=== PATIENT | male | born 1970 | race Caucasian/White ===

== ENCOUNTER 2016-08-10 22:41 | Emergency (ER) | payer SELFPAY ==
[2015-01-10 16:28] VITALS: BP 151/106
--- NOTE | 2016-08-10 23:06 | PHYS DOC ---
Past Medical History Past Medical History: Diabetes-Type II Past Surgical History: Other Additional Past Surgical Histo: hernia Alcohol Use: None Drug Use: None Adult General Chief Complaint Chief Complaint: BACK INJURY HPI HPI Patient is a 45 year old male who presents with mild bilateral low back pain that began yesterday when he lifted 100 pound trunk. Patient states the pain radiates to bilateral lower extremities only when he stands and occasionally. Patient denies any numbness or tingling to bilateral lower extremities or loss of bowel bladder function. Review of Systems Review of Systems Constitutional: Denies fever or chills [] GI: Denies abdominal pain, nausea, vomiting, bloody stools or diarrhea [] : Denies dysuria or hematuria [] Musculoskeletal: Bilateral low back pain radiating to bilateral lower extremities Integument: Denies rash or skin lesions [] Neurologic: Denies headache, focal weakness or sensory changes [] Endocrine: Denies polyuria or polydipsia [] Current Medications Current Medications Current Medications Medications (Trade) Dose Ordered Sig/Blanco Start Time Stop Time Status Last Admin Dose Admin Acetaminophen/ Hydrocodone Bitart (Lortab 5/325) 1 tab 1X ONCE 08/10/16 23:15 08/10/16 23:16 DC 08/10/16 23:16 1 TAB Cyclobenzaprine HCl (Flexeril) 10 mg 1X ONCE 08/10/16 23:15 08/10/16 23:16 DC 08/10/16 23:16 10 MG Naproxen (Naprosyn) 500 mg 1X ONCE 08/10/16 23:15 08/10/16 23:16 DC 08/10/16 23:16 500 MG Allergies Allergies Allergies Coded Allergies Type Severity Reaction Last Updated Verified No Known Drug Allergies 01/10/15 No Physical Exam Physical Exam Constitutional: Well developed, well nourished, no acute distress, non-toxic appearance. [] Abdomen: Bowel sounds normal, soft, no tenderness, no masses, no pulsatile masses. [] Skin: Warm, dry, no erythema, no rash. [] Back: diffuse tenderness to paraspinal muscles of bilateral low lumbar region, no midline tenderness, no CVA tenderness. [] Extremities: No tenderness, no cyanosis, no clubbing, ROM intact, no edema. [] Neurologic: Alert and oriented X 3, normal motor function, normal sensory function, no focal deficits noted. [] Psychologic: Affect normal, judgement normal, mood normal. [] Current Patient Data Vital Signs Vital Signs Date Time Temp Pulse Resp B/P Pulse Ox O2 Delivery O2 Flow Rate FiO2 08/10/16 22:50 97.6 91 18 96 Room Air 97.6 EKG EKG [] Radiology/Procedures Radiology/Procedures [] Course & Med Decision Making Course & Med Decision Making Pertinent Labs and Imaging studies reviewed. (See chart for details) Patient is in the ED with bilateral low back pain radiating to bilateral lower extremities that began yesterday after lifting a trunk. Lumbar x-rays interpreted by Dr. Valiente is negative for any acute findings. Patient probably has muscle strain of the lumbar spine. Discharged with naproxen and Flexeril. Follow-up with PCP in one week. Dragon Disclaimer Dragon Disclaimer This electronic medical record was generated, in whole or in part, using a voice recognition dictation system. Departure Departure Impression: Primary Impression: Lumbosacral strain Disposition: HOME, SELF-CARE Condition: STABLE Referrals: NO PCP (PCP) Follow-up with your own doctor in one week Patient Instructions: Lumbosacral Strain Additional Instructions: You were seen for lumbosacral strain. You can apply heat or ice to the affected area. Take the prescribed medicines as needed. Follow-up with your own doctor in one week. Come back to the emergency room if you develop any loss of bowel/ bladder function or your symptoms worsen. Scripts Cyclobenzaprine Hcl 10 Mg Tablet1 Tab PO TID #30 TAB Prov:TASHI ALEMAN APRN 08/10/16 Naproxen 500 Mg Tablet.dr1 Tab PO BID #60 TAB Ref 1 Prov:TASHI ALEMAN APRN 08/10/16 Problem Qualifiers Primary Impression: Lumbosacral strain Encounter type: initial encounter Qualified Code: S39.012A - Strain of muscle, fascia and tendon of lower back, initial encounter TASHI ALEMAN APRN Aug 10, 2016 23:06
[2016-08-10] MEDS ORDERED: NAPROXEN 500 MG TABLET PO ONE (23:15)
[2016-08-10] MEDS ORDERED: CYCLOBENZAPRINE 10 MG TABLET. PO ONE (23:15)
[2016-08-10] MEDS ORDERED: HYDROCODONE/APAP 5/325MG TABLET. PO ONE (23:15)
[2016-08-10] MEDS ORDERED: CYCL10TA2 PO (23:44)
[2016-08-10] MEDS ORDERED: NAPR500T8 PO (23:44)
--- NOTE | 2016-08-11 07:35 | RAD ---
Indication: Low back pain. Time of exam 2309 hours. Mild left convexity scoliotic curvature is noted. Lordotic curvature is normal. Vertebral body heights are well-maintained. Disc spaces are preserved. No fracture is seen. Impression: No acute bony abnormality is detected.
== END 2016-08-10 23:50 | disposition home or self-care (01) ==
LOC: ER 22:41
DX: S39.012A Strain of muscle, fascia and tendon of lower back, initial encounter (principal); E11.9 Type 2 diabetes mellitus without complications; X58.XXXA Exposure to other specified factors, initial encounter; Y93.89 Activity, other specified; Y92.89 Other specified places as the place of occurrence of the external cause; Y99.8 Other external cause status
CPT/HCPCS: 72100; 99284

== ENCOUNTER 2018-01-24 20:09 | Emergency (ER) | payer SELFPAY | END 2018-01-24 20:35 | disposition home or self-care (01) | LOC: ER 20:09 | DX: H66.91 Otitis media, unspecified, right ear (principal); J02.9 Acute pharyngitis, unspecified; E11.9 Type 2 diabetes mellitus without complications | CPT/HCPCS: 99283 ==

== ENCOUNTER 2018-10-06 19:27 | Emergency (ER) | payer SELFPAY ==
[~2018-10-06] VITALS: Ht 175.3 cm; Wt 117.9 kg
[~2018-10-06 19:27] MED LIST: AMOX500C PO; CYCL10TA2 PO; IBUP-1060 PO; NAPR500T8 PO
[2018-10-06] MEDS ORDERED: IBUPROFEN 400 MG TABLET. PO ONE (20:45)
[2018-10-06 20:52] LABS: INFLUENZA A PATIENT NEGATIVE (NEGATIVE); INFLUENZA B PATIENT NEGATIVE (NEGATIVE)
--- NOTE | 2018-10-06 20:57 | PHYS DOC ---
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 Patient's only past medical history is diabetes. Patient states he's been taking Mucinex D. ([facility]) Review of Systems Review of Systems Constitutional: Denies fever or chills [] Eyes: Denies change in visual acuity, redness, or eye pain [] HENT: nasal congestion or sore throat [] Respiratory: cough or denies shortness of breath [] Cardiovascular: No additional information not addressed in HPI [] GI: Denies abdominal pain, nausea, vomiting, bloody stools or diarrhea [] : Denies dysuria or hematuria [] Musculoskeletal: body aches. Denies back pain or joint pain [] Integument: Denies rash or skin lesions [] Neurologic: Denies headache, focal weakness or sensory changes [] All other systems were reviewed and found to be within normal limits, except as documented in this note. 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 [] HENT: Normocephalic, atraumatic, bilateral external ears normal, oropharynx moist, no oral exudates, nose normal. Throat reddened with swelling and no exudates.[] Eyes: PERRLA, EOMI, conjunctiva normal, no discharge. [] Neck: Normal range of motion, no tenderness, supple, no stridor. [] Cardiovascular:Heart rate regular rhythm, no murmur [] Lungs & Thorax: Bilateral breath sounds clear to auscultation [] Abdomen: Bowel sounds normal, soft, no tenderness, no masses, no pulsatile masses. [] Skin: Warm, dry, no erythema, no rash. [] Back: No tenderness, no CVA tenderness. [] Extremities: No tenderness, no cyanosis, no clubbing, ROM intact, no edema. [] Neurologic: Alert and oriented X 3, normal motor function, normal sensory function, no focal deficits noted. [] Psychologic: Affect normal, judgement normal, mood normal. [] (IGGY COBOS APRN) Current Patient Data Vital Signs Vital Signs Date Time Temp Pulse Resp B/P (MAP) Pulse Ox O2 Delivery O2 Flow Rate FiO2 10/06/18 22:20 98.0 100 18 153/84 (107) 97 98.0 10/06/18 19:30 Room Air (JONNY JACKSON MD) Lab Values Laboratory Tests Test 10/06/18 20:22 Influenza Type A Antigen Negative (NEGATIVE) Influenza Type B Antigen Negative (NEGATIVE) (JONNY JACKSON MD) EKG EKG [] (IGGY COBOS APRN) Radiology/Procedures Radiology/Procedures [] (IGGY COBOS APRN) Impressions: [facility] [address] [place] [address] IMAGING REPORT Signed PATIENT: RAFFY CHRISTOPHER ACCOUNT: [id number] : 1970 LOCATION: ER AGE: 47 SEX: M EXAM STATUS: REG ER ORD. PHYSICIAN: IGGY COBOS APRN REASON: cough PROCEDURE: CHEST PA & LATERAL CHEST PA LATERAL History: COUGH, FEVER Comparison: None. Findings: 2 views of the chest are submitted. There is no infiltrate, pneumothorax, or effusion. The cardiac silhouette is within normal limits in size. The trachea is in the midline. No acute osseous abnormality is identified. Impression: 1. There is no evidence of acute cardiopulmonary disease. Electronically signed by: Yehuda Osborn MD (10/06/2018 9:48 PM) [facility] DICTATED and SIGNED BY: YEHUDA OSBORN MD DATE: 10/06/182147 (IGGY COBOS APRN) Course & Med Decision Making Course & Med Decision Making Patient is a 47 year old male who presents with body aches, fever, sore throat , cough, nasal congestion, ear pain for 2 days. Patient's only past medical history is diabetes. Patient states he's been taking Mucinex D. Alert and oriented. Bilateral tympanic membranes are boggy. Throat is reddened and slightly swollen. Patient is currently afebrile. Patient has not taken any ibuprofen or Tylenol today. Temperature 98.0, 106 heart rate, 97% on room air. Skin is pink warm and dry. Mucous membranes are moist. Lungs are clear to auscultation all lobes. Patient denies any shortness of breath, chest pain, diarrhea, nausea, vomiting, fever, headache, dizziness. Chest xray shows no acute findings. Patient to follow-up area that will give him azithromycin, a Dosepak and cough medication. (IGGY COBOS APRN) Course & Med Decision Making Staff Physician Addendum: I was working in the ER during the course of this patient's visit. I was available for consultation as needed, but I was not directly involved in the care of this patient. (JONNY JACKSON MD) Dragon Disclaimer Dragon Disclaimer This electronic medical record was generated, in whole or in part, using a voice recognition dictation system. (IGGY COBOS APRN) Departure Departure Impression: Primary Impression: Cough Additional Impressions: Sore throat Body aches Disposition: HOME, SELF-CARE Condition: STABLE Referrals: NO PCP (PCP) Patient Instructions: Cough, Child, Sore Throat Additional Instructions: Follow primary care provider. Take medications as prescribed. Problem Qualifiers IGGY COBOS APRN Oct 06, 2018 20:57 JONNY JACKSON MD Oct 15, 2018 17:02
--- NOTE | 2018-10-06 21:51 | RAD ---
CHEST PA LATERAL History: COUGH, FEVER Comparison: None. Findings: 2 views of the chest are submitted. There is no infiltrate, pneumothorax, or effusion. The cardiac silhouette is within normal limits in size. The trachea is in the midline. No acute osseous abnormality is identified. Impression: 1. There is no evidence of acute cardiopulmonary disease. Electronically signed by: Edward Holden MD (10/06/2018 9:48 PM) [facility]
[2018-10-06] MEDS ORDERED: METH4TAB2 PO (22:00)
[2018-10-06] MEDS ORDERED: BENZ100C PO (22:00)
[2018-10-06] MEDS ORDERED: AZIT250T6 PO (22:00)
[2018-10-06 22:20] VITALS: BP 153/84
== END 2018-10-06 22:20 | disposition home or self-care (01) ==
LOC: ER 19:27
DX: J02.9 Acute pharyngitis, unspecified (principal); R50.9 Fever, unspecified; H92.09 Otalgia, unspecified ear; M79.18 Myalgia, other site; E11.9 Type 2 diabetes mellitus without complications
CPT/HCPCS: 71046; 87804; 99284-25

== ENCOUNTER 2018-10-09 16:29 | Inpatient (IN) | payer SELFPAY ==
[~2018-10-09] VITALS: Ht 175.3 cm; Wt 113.4 kg
[~2018-10-09 16:29] MED LIST changes: +AZIT250T6 PO; +BENZ100C PO; +METH4TAB2 PO
[2018-10-09] MEDS ORDERED: fentaNYL PF VIAL 100 MCG/2 ML VIAL IV ONE (17:15)
[2018-10-09 17:41] LABS: BASO % 0 % (0-3); EOS # 0.1 x10^3/uL (0.0-0.7); EOS % 1 % (0-3); HEMATOCRIT 46.7 % (39.0-53.0); HEMOGLOBIN 15.7 g/dL (13.0-17.5); LYMPH % 9 % (24-48); MEAN CORPUSCULAR HEMOGLOBIN 31 pg (25-35); MEAN CORPUSCULAR HGB CONC 34 g/dL (31-37); MEAN CORPUSCULAR VOLUME 91 fL (79-100); MONO # 0.7 x10^3/uL (0.0-1.1); MONO % 7 % (0-9); NEUT # 8.9 x10^3uL (1.8-7.7); NEUT % 83 % (31-73); PLATELET COUNT 294 x10^3/uL (140-400); RED BLOOD COUNT 5.12 x10^6/uL (4.30-5.70); RED CELL DISTRIBUTION WIDTH 13.2 % (11.5-14.5); WHITE BLOOD COUNT 10.7 x10^3/uL (4.0-11.0)
[2018-10-09 17:52] LABS: CALCIUM 9.2 mg/dL (8.5-10.1); CREATININE 1.3 mg/dL (0.7-1.3); GFR 59.2; POTASSIUM 4.2 mmol/L (3.5-5.1)
[2018-10-09 17:55] LABS: ALBUMIN 3.4 g/dL (3.4-5.0); ALBUMIN/GLOBULIN RATIO 0.7 (1.0-1.7); TOTAL BILIRUBIN 0.4 mg/dL (0.2-1.0); TOTAL PROTEIN 8.1 g/dL (6.4-8.2)
[2018-10-09] MEDS ORDERED: METOPROLOL TARTRATE 5 MG/5 ML VIAL. IVP ONE (18:00)
[2018-10-09] MEDS ORDERED: CONTRAST GIVEN. MC PRN (18:15)
[2018-10-09] MEDS ORDERED: IOHEXOL 300 MG/ML 100ML VIAL. IV ONE (18:30)
--- NOTE | 2018-10-09 18:40 | RAD ---
EXAM: CT Pelvis with IV contrast CLINICAL HISTORY: RASH ON SCROTUM AND LEGS X 5 DAYS COMPARISON: none TECHNIQUE: Helical CT of the pelvis was performed following the administration of intravenous contrast. Axial, coronal and sagittal reformatted images were generated. PQRS compliance statement - One or more of the following individualized dose reduction techniques were utilized for this study: 1. Automated exposure control 2. Adjustment of the mA and/or kV according to patient size 3. Use of iterative reconstruction technique FINDINGS: Pelvis: Scrotal soft tissue thickening is seen at the inferior margin. No definite soft tissue gas is seen in this region. No associated loculated fluid collection is seen. Prominent right inguinal lymph nodes are seen. For example a 1.6 x 1.5 cm right inguinal lymph node is seen with associated fat infiltration. No pelvic ascites. Changes of right inguinal hernia repair are seen. Appendix is normal. Bones: No aggressive osseous lesion is seen. No evidence for fracture or AVN. Bilateral hip joint degenerative changes are seen. IMPRESSION: Scrotal soft tissue thickening particularly posteriorly extending toward the thighs may be seen with soft tissue infection. No definite subcutaneous gas or loculated fluid collection is definitively identified. Electronically signed by: Saul Morton MD (10/09/2018 6:37 PM) [facility]
[2018-10-09] MEDS ORDERED: IV NORMAL SALINE 1000ML BAG 1,000 ML IV ONE ×2 (19:00→19:15)
[2018-10-09] MEDS: NYSTATIN TOPICAL POWDER 15GM BOTTLE. TP SCH (19:09)
[2018-10-09] MEDS: NYSTATIN 100,000 UNIT/GM TOPICAL CREAM 15GM TUBE. TP SCH (19:09)
[2018-10-09] MEDS ORDERED: INSULIN REGULAR 100 UNIT/ML 3ML VIAL. IV ONE (19:15)
[2018-10-09] MEDS ORDERED: DEXTROSE 50% 25 GM / 50ML DISP.SYRIN. IV PRN (19:30)
[2018-10-09] MEDS ORDERED: cefTRIAXone IV Push 1 GM VIAL. IVP ONE (19:30)
[2018-10-09] MEDS ORDERED: VANCOMYCIN 2 GM in IV NORMAL SALINE 500ML BAG 500 ML IV ONE (19:30)
[2018-10-09] MEDS ORDERED: ONDANSETRON PF 4 MG/2 ML VIAL. IV PRN (19:30)
[2018-10-09] MEDS ORDERED: fentaNYL PF VIAL 100 MCG/2 ML VIAL IV PRN (19:30)
--- NOTE | 2018-10-09 20:08 | PHYS DOC ---
Past Medical History Past Medical History: Diabetes-Type II, Other Additional Past Medical Histor: SEASONAL ALLERGIES (MANDY SABA APRN) Past Surgical History: Other Additional Past Surgical Histo: hernia (MANDY SABA APRN) Alcohol Use: None Drug Use: None (MANDY SABA APRN) Adult General Chief Complaint Chief Complaint: SKIN RASH/ABSCESS HPI HPI Patient is a 47 year old male who presents with a rash to his scrotum and bilateral thighs and an erythematous third toe to the right foot. The patient states that the rash has been greatly worsening over the past few days and he is now suffering quite a bit of pain. He states that the skin is weeping. He denies pain in his testicles but states that the skin of the scrotum is painful. He denies fevers but thinks that he does have the flu. He has had chills and body aches. (MANDY SABA APRN) Review of Systems Review of Systems Constitutional: See history of present illness Eyes: Denies change in visual acuity, redness, or eye pain [] HENT: Denies nasal congestion or sore throat [] Respiratory: Denies cough or shortness of breath [] Cardiovascular: No additional information not addressed in HPI [] GI: Denies abdominal pain, nausea, vomiting, bloody stools or diarrhea [] : Denies dysuria or hematuria [] Musculoskeletal: See history of present illness Integument: See history of present illness Neurologic: Denies headache, focal weakness or sensory changes [] Endocrine: Denies polyuria or polydipsia [] All other systems were reviewed and found to be within normal limits, except as documented in this note. (MANDY SABA APRN) Current Medications Current Medications Current Medications Medications (Trade) Dose Ordered Sig/Blanco Start Time Stop Time Status Last Admin Dose Admin Fentanyl Citrate (Fentanyl 2ml Vial) 50 mcg 1X ONCE 10/09/18 17:15 10/09/18 17:16 DC 10/09/18 18:14 50 MCG Info (CONTRAST GIVEN -- Rx MONITORING) 1 each PRN DAILY PRN 10/09/18 18:15 10/11/18 18:14 DC Insulin Human Regular (HumuLIN R VIAL) 10 unit 1X ONCE 10/09/18 19:15 10/09/18 19:16 DC 10/09/18 19:14 10 UNIT Iohexol (Omnipaque 300 Mg/ml) 75 ml 1X ONCE 10/09/18 18:30 10/09/18 18:31 DC 10/09/18 18:04 75 ML Metoprolol Tartrate (Lopressor Vial) 5 mg 1X ONCE 10/09/18 18:00 10/09/18 18:01 DC Sodium Chloride 1,000 ml @ 1,000 mls/hr 1X ONCE 10/09/18 19:15 10/09/18 20:14 DC 10/09/18 20:24 1,000 MLS/HR (MINDY PINEDA DO) Physical Exam Physical Exam Constitutional: Well developed, well nourished, no acute distress, non-toxic appearance. [] HENT: Normocephalic, atraumatic, bilateral external ears normal, oropharynx moist, no oral exudates, nose normal. [] Eyes: PERRLA, EOMI, conjunctiva normal, no discharge. [] Neck: Normal range of motion, no tenderness, supple, no stridor. [] Cardiovascular:Heart rate regular rhythm, no murmur [] Lungs & Thorax: Bilateral breath sounds clear to auscultation [] Abdomen: Bowel sounds normal, soft, no tenderness, no masses, no pulsatile masses. [] Skin: There is excoriation and erythema to the scrotum and bilateral inner thighs with secondary skin infection noted, no necrosis noted, the skin appears macerated in the folds Back: No tenderness, no CVA tenderness. [] Extremities: Right third toe is erythematous and edematous Neurologic: Alert and oriented X 3, normal motor function, normal sensory function, no focal deficits noted. [] Psychologic: Affect normal, judgement normal, mood normal. [] (MANDY SABA APRN) Current Patient Data Vital Signs Vital Signs Date Time Temp Pulse Resp B/P (MAP) Pulse Ox O2 Delivery O2 Flow Rate FiO2 10/09/18 19:07 132/81 (98) 10/09/18 18:37 95 Room Air 10/09/18 18:20 98 10/09/18 18:14 20 10/09/18 17:03 97.5 97.5 (MINDY PINEDA DO) Lab Values Laboratory Tests Test 10/09/18 17:30 White Blood Count 10.7 x10^3/uL (4.0-11.0) Red Blood Count 5.12 x10^6/uL (4.30-5.70) Hemoglobin 15.7 g/dL (13.0-17.5) Hematocrit 46.7 % (39.0-53.0) Mean Corpuscular Volume 91 fL (79-100) Mean Corpuscular Hemoglobin 31 pg (25-35) Mean Corpuscular Hemoglobin Concent 34 g/dL (31-37) Red Cell Distribution Width 13.2 % (11.5-14.5) Platelet Count 294 x10^3/uL (140-400) Neutrophils (%) (Auto) 83 % (31-73) H Lymphocytes (%) (Auto) 9 % (24-48) L Monocytes (%) (Auto) 7 % (0-9) Eosinophils (%) (Auto) 1 % (0-3) Basophils (%) (Auto) 0 % (0-3) Neutrophils # (Auto) 8.9 x10^3uL (1.8-7.7) H Lymphocytes # (Auto) 1.0 x10^3/uL (1.0-4.8) Monocytes # (Auto) 0.7 x10^3/uL (0.0-1.1) Eosinophils # (Auto) 0.1 x10^3/uL (0.0-0.7) Basophils # (Auto) 0.0 x10^3/uL (0.0-0.2) Sodium Level 133 mmol/L (136-145) L Potassium Level 4.2 mmol/L (3.5-5.1) Chloride Level 95 mmol/L (98-107) L Carbon Dioxide Level 27 mmol/L (21-32) Anion Gap 11 (6-14) Blood Urea Nitrogen 16 mg/dL (8-26) Creatinine 1.3 mg/dL (0.7-1.3) Estimated GFR (Cockcroft-Gault) 59.2 BUN/Creatinine Ratio 12 (6-20) Glucose Level 401 mg/dL (70-99) H Lactic Acid Level 4.0 mmol/L (0.4-2.0) *H Calcium Level 9.2 mg/dL (8.5-10.1) Total Bilirubin 0.4 mg/dL (0.2-1.0) Aspartate Amino Transferase (AST) 18 U/L (15-37) Alanine Aminotransferase (ALT) 42 U/L (16-63) Alkaline Phosphatase 112 U/L (46-116) Total Protein 8.1 g/dL (6.4-8.2) Albumin 3.4 g/dL (3.4-5.0) Albumin/Globulin Ratio 0.7 (1.0-1.7) L Laboratory Tests 10/09/18 17:30 Laboratory Tests 10/09/18 17:30 Microbiology 10/09/18 Anaerobic/Aerobic Culture, Resulted Pending 10/09/18 Anaerobic Culture Result 1 (LUANNE), Resulted Pending 10/09/18 Aerobic Culture - Preliminary, Resulted 10/09/18 Aerobic Culture Result 1 (LUANNE) - Preliminary, Resulted 10/09/18 Aerobic Culture Result 2 (LUANNE) - Preliminary, Resulted 10/09/18 Gram Stain - Final, Resulted 10/09/18 Gram Stain Result 1 (LUANNE) - Final, Resulted 10/09/18 Gram Stain Result 2 (LUANNE) - Final, Resulted (MINDY PINEDA DO) EKG EKG [] (MANDY SABA APRN) Radiology/Procedures Radiology/Procedures [] (MANDY SABA APRN) Radiology/Procedures PROCEDURE: CT PELVIS W/CONTRAST EXAM: CT Pelvis with IV contrast CLINICAL HISTORY: RASH ON SCROTUM AND LEGS X 5 DAYS COMPARISON: none TECHNIQUE: Helical CT of the pelvis was performed following the administration of intravenous contrast. Axial, coronal and sagittal reformatted images were generated. PQRS compliance statement - One or more of the following individualized dose reduction techniques were utilized for this study: 1. Automated exposure control 2. Adjustment of the mA and/or kV according to patient size 3. Use of iterative reconstruction technique FINDINGS: Pelvis: Scrotal soft tissue thickening is seen at the inferior margin. No definite soft tissue gas is seen in this region. No associated loculated fluid collection is seen. Prominent right inguinal lymph nodes are seen. For example a 1.6 x 1.5 cm right inguinal lymph node is seen with associated fat infiltration. No pelvic ascites. Changes of right inguinal hernia repair are seen. Appendix is normal. Bones: No aggressive osseous lesion is seen. No evidence for fracture or AVN. Bilateral hip joint degenerative changes are seen. IMPRESSION: Scrotal soft tissue thickening particularly posteriorly extending toward the thighs may be seen with soft tissue infection. No definite subcutaneous gas or loculated fluid collection is definitively identified. Electronically signed by: Saul Morton MD (10/09/2018 6:37 PM) [facility] (MINDY PINEDA DO) Course & Med Decision Making Course & Med Decision Making Pertinent Labs and Imaging studies reviewed. (See chart for details) The patient has an elevated glucose and lactic acid. He was given 2 L of normal saline, 10 units of regular insulin, fentanyl, Rocephin and vancomycin in the emergency department. He will be admitted to Dr. Oakes's service. Nystatin cream and powder were applied to the affected areas. (MANDY SABA APRN) Dragon Disclaimer Dragon Disclaimer This electronic medical record was generated, in whole or in part, using a voice recognition dictation system. (MANDY SABA APRN) Departure Departure Impression: Primary Impression: Diabetes Additional Impressions: Skin infection Toe infection Disposition: ADMITTED INPATIENT Admitting Physician: Abiel Fuentes (MANDY SABA APRN) Condition: GOOD Referrals: NO PCP (PCP) Scripts Lisinopril (LISINOPRIL) 2.5 Mg Tablet 1 TAB PO DAILY for hypertension and diabetes, #30 TAB 1 Refill Prov: LANIE THOMAS MD 10/12/18 Metformin Hcl (METFORMIN HCL) 500 Mg Tablet 500 MG PO BIDWMEALS for ANTI-DIABETIC, #60 TAB 0 Refills Prov: LANIE THOMAS MD 10/12/18 Fluconazole (FLUCONAZOLE) 200 Mg Tablet 1 TAB PO DAILY for skin rash, #7 TAB Prov: LANIE THOMAS MD 10/12/18 Doxycycline Monohydrate (DOXYCYCLINE MONOHYDRATE) 100 Mg Capsule 1 CAP PO BID for cellulitis, #14 CAP Prov: LANIE THOMAS MD 10/12/18 Amoxicillin/Potassium Clav (AUGMENTIN 875-125 TABLET) 1 Each Tablet 1 TAB PO BID for cellulitis, #14 TAB Prov: LANIE THOMAS MD 10/12/18 Lactobacillus Rhamnosus Gg (CULTURELLE) 1 Each Cap.sprink 1 CAP PO BID for gut health while on antibiotic, #60 CAP Prov: LANIE THOMAS MD 10/12/18 Nystatin (NYSTOP) 60 Gm Powder 1 QUINTON TP BID for rash, #30 MISC Prov: LANIE THOMAS MD 10/12/18 Attending Signature Attending Signature I have reviewed the PA/ANIMAL HUSBANDRY MANAGER's note and plan of care. I was available for consultation as needed during the patient's visit in the emergency department. I agree with the clinical impression, plan, and disposition. (MINDY PINEDA DO) Problem Qualifiers MANDY SABA APRN Oct 09, 2018 20:08 MINDY PINEDA DO Oct 13, 2018 04:35
[2018-10-09] MEDS: VANCOMYCIN PER PHARMACY MC PRN ×2 (20:35→21:18)
[2018-10-09 20:50] VITALS: BP 146/93
--- NOTE | 2018-10-09 20:55 | NUR ---
The patient, RAFFY CHRISTOPHER, 47 y/o, M admitted by LILIANA RODRIGUEZ MD, from the ED was given written information regarding hospital policies, unit procedures and contact persons. Valuables were checked and kept w/ pt. Pt vital signs are stable, afebrile, and is ambulating well. Pt c/o pain around the groin area. Rash is seen all over the groin area and down right thigh. Pt has a wound on the right middle toe. Photographs were taken and placed in chart. Pt was accompanied by his girlfriend on admission. Will continue to monitor.
--- NOTE | 2018-10-09 21:24 | NUR ---
Pharmacy Vancomycin Dosing Note S:Consulted to monitor and dose vancomycin started 10/09/18. O:RAFFY CHRISTOPHER is a 47 year old M with Abscess Cellulitis . Height: 5 feet, 9 inches Weight: 113.138479 kg [place] Body Weight: 70.70 Adjusted Body Weight: 87.78 Dosing Weight: Actual Other Antibiotics: LABS: Last BUN: 16 Last Creatinine: 1.3 Creatinine Clearance: 87.2 mL/min Last WBC: 10.7 Last Procalcitonin: Tmax (past 24 hours): 97.5 Microbiology: I/O: Drug Levels: Last level: on at Last dose given 10/09/18 at 1942 Vancomycin Dosing: Loading Dose: 2000 mg x1 Dosing Weight: Actual Target Trough: 10-20 A: Based on weight and est. CrCl: P: 1. Vancomycin 2000mg, followed by Vancomycin 1750 mg IV q12h. 2. Follow up Trough level on 10/11/18 at 0730. 3. Pharmacy will continue to monitor, follow and adjust therapy as needed. Deion Garrison [facility], 10/09/18 0308
[2018-10-09] MEDS: IV NORMAL SALINE 1000ML BAG 1,000 ML IV SCH (22:35)
[2018-10-09] MEDS: MORPHINE SULFATE 4 MG/ML VIAL. IV PRN (22:36)
[2018-10-09 23:00] VITALS: BP 139/89
[2018-10-09 23:37] LABS: BILIRUBIN,URINE NEGATIVE (NEG); CLARITY,URINE CLEAR; COLOR,URINE YELLOW; NITRITE,URINE NEGATIVE (NEG); PROTEIN,URINE NEGATIVE (NEG-TRACE); UROBILINOGEN,URINE 0.2 mg/dL (0.2 mg/dL)
[2018-10-09 23:49] LABS: RBC,URINE OCC /HPF (0-2)
[2018-10-09 23:50] LABS: BACTERIA,URINE 0 /HPF (0-FEW); SQUAMOUS EPITHELIAL CELL,UR FEW /LPF
[2018-10-10 03:00] VITALS: BP 125/88
[2018-10-10 05:04] LABS: BASO % 0 % (0-3); EOS # 0.2 x10^3/uL (0.0-0.7); EOS % 2 % (0-3); HEMATOCRIT 42.5 % (39.0-53.0); HEMOGLOBIN 14.2 g/dL (13.0-17.5); LYMPH # 1.6 x10^3/uL (1.0-4.8); LYMPH % 21 % (24-48); MEAN CORPUSCULAR HEMOGLOBIN 30 pg (25-35); MEAN CORPUSCULAR HGB CONC 33 g/dL (31-37); MEAN CORPUSCULAR VOLUME 91 fL (79-100); MONO # 0.7 x10^3/uL (0.0-1.1); MONO % 9 % (0-9); NEUT # 5.3 x10^3uL (1.8-7.7); NEUT % 68 % (31-73); PLATELET COUNT 283 x10^3/uL (140-400); RED BLOOD COUNT 4.67 x10^6/uL (4.30-5.70); WHITE BLOOD COUNT 7.9 x10^3/uL (4.0-11.0)
[2018-10-10 05:24] LABS: CALCIUM 8.7 mg/dL (8.5-10.1); GFR 80.1
[2018-10-10 07:00] VITALS: BP 166/91
[2018-10-10] MEDS: INSULIN LISPRO 300 UNITS/3 ML INSULN.PEN. SQ SCH ×3 (08:00→17:27)
[2018-10-10] MEDS: IV NORMAL SALINE 1000ML BAG 1,000 ML IV SCH ×2 (08:50→15:12)
[2018-10-10] MEDS: NYSTATIN 100,000 UNIT/GM TOPICAL CREAM 15GM TUBE. TP SCH ×2 (08:51→21:44)
[2018-10-10] MEDS: NYSTATIN TOPICAL POWDER 15GM BOTTLE. TP SCH ×2 (08:51→21:44)
[2018-10-10] MEDS: MORPHINE SULFATE 4 MG/ML VIAL. IV PRN (08:52)
[2018-10-10] MEDS: VANCOMYCIN 1.75 GM in IV NORMAL SALINE 500ML BAG 500 ML IV SCH ×2 (08:56→19:39)
[2018-10-10 11:00] VITALS: BP 122/75
--- NOTE | 2018-10-10 13:06 | NUR ---
SW following. Discussed with RN, pt is from home with . SW met with pt to give self pay resource packet, pt denied any further SW needs. SW will continue to follow.
--- NOTE | 2018-10-10 14:08 | HP ---
ADMIT DATE: 10/09/2018 CHIEF COMPLAINT: Skin rash in the groin and scrotum and right third toe. HISTORY OF PRESENT ILLNESS: The patient is a pleasant 47-year-old male who has diabetes. He presents with the above infections in his right groin, scrotum and right foot. It has been occurring for several weeks. He has tried taking [id number] meds, but that is not working. He describes it as agonizing, rated at 10/10, with associated pain. I discussed the case with ER physician. We are going to admit the patient and consult Infectious Disease and start him on some IV vancomycin. PAST MEDICAL HISTORY: Diabetes, probable noncompliance, previous skin rash. ALLERGIES: None. FAMILY HISTORY: Diabetes. SOCIAL HISTORY: Does not drink, smoke or take drugs. MEDICATIONS: Reviewed, please refer to the MRAD. REVIEW OF SYSTEMS: GENERAL: No history of weight change, weakness or fevers. SKIN: He complains of rash on his right inner thigh. EYES: No blurred, double or loss of vision. NOSE AND THROAT: No history of nosebleeds, hoarseness or sore throat. HEART: No history of palpitations, chest pain or shortness of breath on exertion. LUNGS: Denies cough, hemoptysis, wheezing or shortness of breath. GASTROINTESTINAL: Denies changes in appetite, nausea, vomiting, diarrhea or constipation. GENITOURINARY: He complains of a rash on his scrotum.. NEUROLOGIC: Denies history of numbness, tingling, tremor or weakness. PSYCHIATRIC: No history of panic, anxiety or depression. ENDOCRINE: No history of heat or cold intolerance, polyuria or polydipsia. EXTREMITIES: He complains of rash on the right third toe.. PHYSICAL EXAMINATION: VITAL SIGNS: Temperature afebrile, pulse 82, respirations 18, blood pressure 122/90. GENERAL: He is alert, cooperative. HEART: Normal S1, S2. LUNGS: Clear. ABDOMEN: Soft. EXTREMITIES: The right third toe does have a dry and erythematous lesion. Pedal pulses are distant. GENITOURINARY: He has got a scrotal rash and a right inner thigh rash. ENDOCRINE: No thyromegaly. LYMPHATICS: No cervical nodes. HEMATOPOIETIC: No bruising. PSYCHIATRIC: He is stable. LABORATORY DATA: Hematology is normal. Electrolytes are normal other than a glucose of 214 and lactic acid of 4. Urinalysis negative. ASSESSMENT AND PLAN: Cellulitis and probable early sepsis with lactic acidosis and tachycardia when he first got to the Emergency Room of 114 and tachypnea as well when he got to the Emergency Room with a rate of 20. Start IV vancomycin. Consult Infectious Disease. Wound care nurse to evaluate and treat. Home meds. Deep venous thrombosis prophylaxis, frequent labs. MOHSEN SOTO DO DR: ZOEY/kel JOB#: [id number] / [id number]
[2018-10-10 15:00] VITALS: BP 131/74
[2018-10-10] MEDS: MICAFUNGIN 100 MG in IV DEXTROSE 5% 100ML 100 ML IV SCH (15:12)
--- NOTE | 2018-10-10 15:16 | RAD ---
EXAM: Right foot, 3 views. HISTORY: Third toe swelling and erythema. COMPARISON: None. FINDINGS: 3 views of the right foot are obtained. There is no fracture, dislocation or subluxation. There is a small bone island within the cuboid. There is a small plantar spur and minimal enthesopathy at the Achilles tendon insertion. IMPRESSION: No acute osseous finding. Electronically signed by: Jessica Bailon MD (10/10/2018 3:13 PM) [facility]
[2018-10-10] MEDS: VANCOMYCIN PER PHARMACY MC PRN (16:58)
[2018-10-10] MEDS: PIPERACILLIN/TAZOBACTAM 3.375 GM in IV NORMAL SALINE 50ML 50 ML IV SCH (17:20)
--- NOTE | 2018-10-10 17:57 | NUR ---
Wound Care Pt seen for wound care consultation for R groin and R 3rd toe wounds. R 3rd toe is bright red, dry and crusty, no drainage or open skin noted, appears to possibly be fungal. Groin and lamine areas macerated, yeasty and rashy, areas cleaned, Nystatin powder reapplied, would recommend powder only, as cream is keeping area wet. Pt educated on proper cleaning and drying of skin. No other wounds noted on full skin inspection.
[2018-10-10 19:00] VITALS: BP 124/62
[2018-10-10] MEDS: LACTOBACILLUS RHAMNOSUS GG 1 CAPSULE. PO SCH (21:43)
[2018-10-10 23:00] VITALS: BP 123/79
[2018-10-11] MEDS: PIPERACILLIN/TAZOBACTAM 3.375 GM in IV NORMAL SALINE 50ML 50 ML IV SCH ×4 (00:17→17:31)
[2018-10-11 03:00] VITALS: BP 112/61
--- NOTE | 2018-10-11 04:48 | CONS ---
DATE OF CONSULTATION: 10/10/2018 REFERRING PHYSICIAN: Dr. Cazares. REASON FOR CONSULTATION: Scrotal cellulitis. HISTORY OF PRESENT ILLNESS: A 47-year-old male, with diabetes, poorly controlled, presented to the ER on 10/09/2018 with complaints of chills, body ache, rash over the scrotum and bilateral thigh with erythematous right third toe, which started a couple of days prior to presentation. He started having pain and the skin lesion started weeping. He started having pain over the skin on the scrotum. He thought he may have flu, but denies any fever. He was found to have high blood sugar. No leukocytosis. He had lactic acidosis. He was given a dose of ceftriaxone and subsequently was started on IV vancomycin and admitted to the floor. ID consult has been requested for antibiotic management. He underwent a pelvic CT, which showed scrotal soft tissue thickening, particularly posteriorly extending towards the thigh, may be seen with soft tissue infection, no definite subcutaneous gas or loculated fluid collection is definitely identified. Chest x-ray showed no acute cardiopulmonary disease. White count was normal. Lactate was high at 4, last night was 2.2. Influenza screen was negative. UA was negative. REVIEW OF SYSTEMS: The patient denies any fevers. Feels better today. Denies any chills. Denies any night sweats. Denies any pain in the right toe. Does have some pain over the scrotum and the thigh. Denies any symptoms, GI symptoms, headache, runny nose, sore throat, rash besides above in HPI or chest pain. PAST MEDICAL HISTORY: Diabetes, poorly controlled; history of skin infection 4 years ago, unable to give details; history of lumbosacral strain. CURRENT MEDICATIONS: IV vancomycin. OTHER MEDICATIONS: Reviewed in medication list. ALLERGIES: No known drug allergies. FAMILY HISTORY: As per HPI. PHYSICAL EXAMINATION: VITAL SIGNS: Temperature 97.7, pulse 86, respiratory rate 18, blood pressure 122/75, oxygen saturation 96% on room air. GENERAL: Alert, oriented x 3, sleepy male, arousable, in no acute distress, cooperative. HEENT: Normocephalic, atraumatic, anicteric. NECK: Supple. No JVD. LUNGS: Clear bilaterally. No wheezing. HEART: S1, S2. No gallops, murmurs or rubs. ABDOMEN: Soft, nontender, nondistended. No rebound, no guarding. EXTREMITIES: Right third toe shows dry erythematous lesion, mild skin breakdown, no purulence. GENITOURINARY: Has scrotal erythema, rash going up to the right inner thigh. No fluctuance, nontender. No induration. LYMPHATICS: No inguinal lymphadenopathy. CENTRAL NERVOUS SYSTEM: Alert and oriented x 3. Grossly nonfocal. PSYCHIATRIC: Cooperative, appropriate mood and affect. DERMATOLOGIC: No generalized rashes except for above. LABORATORY DATA: WBC 7.9, hemoglobin 14.2, hematocrit 42.5, platelets 283, neutrophil was 83%, today is 68. Sodium 139, potassium 4.0, chloride 101, bicarb 29, BUN 11, creatinine 1.1, glucose 214, was 401. Lactate was 4, repeat was 2.2. LFTs within normal limits. Influenza screen negative. UA negative for leukocyte esterase, 1-4 wbc's. IMAGING: Pelvic CT shows scrotal soft tissue thickening, particularly posterior extending towards the thigh, may be seen with soft tissue infection, no definite subcutaneous gas or loculated fluid collection is definitely identified. IMPRESSION: 1. Early sepsis.Source Scrotal infection 2. Lactic acidosis. 3. Cellulitis of scrotum and right upper thigh.CT Pelvis no abscess 4. Poorly controlled diabetes. RECOMMENDATIONS: 1. Continue empiric IV vancomycin.Monitor renal functions closely 2. Start the patient on Zosyn and micafungin. 3. Follow up cultures and susceptibility results. 4. Continue local wound care. 5. We will obtain right foot x-ray. 6. Monitor renal functions closely. 7. We will modify treatment depending on clinical response. Thank you, Dr. Cazares, for consulting Infectious Disease to participate in this patient's care. If you have any questions, do not hesitate to contact me. MILAGROS PONCE MD DR: JUN/kel JOB#: [id number] / [id number] MATT
[2018-10-11 07:00] VITALS: BP 132/88
[2018-10-11 07:43] LABS: VANC TR 12.9 mcg/mL (10.0-20.0)
[2018-10-11] MEDS: VANCOMYCIN PER PHARMACY MC PRN (08:20)
--- NOTE | 2018-10-11 08:21 | NUR ---
Pharmacy Vancomycin Dosing Note S:Consulted to monitor and dose vancomycin started 10/09/18. O:RAFFY CHRISTOPHER is a 47 year old M with Abscess Cellulitis . Height: 5 feet, 9 inches Weight: 113.952615 kg [place] Body Weight: 70.70 Adjusted Body Weight: 87.78 Dosing Weight: Actual Other Antibiotics: ZOSYN, MYCAMINE LABS: Last BUN: 11 Last Creatinine: 1 Creatinine Clearance: >100 mL/min Last WBC: 7.9 Last Procalcitonin: Tmax (past 24 hours): 98.2 Microbiology: 10/09 GROIN- pending, many gram+ cocci I/O: 4675/2450 Drug Levels: Last Trough level: 12.9 on 10/11/18 at 0715 Last dose given 10/10/18 at 0856 Vancomycin Dosing: Loading Dose: 2000 mg x1 Dosing Weight: Actual Target Trough: 10-20 A: Based on: Therapeutic trough P: 1. Continue Vancomycin 1750 mg IV q12h 2. Follow up Trough level as needed 3. Pharmacy will continue to monitor, follow and adjust therapy as needed. RIKY RAMIREZ RPH, 10/11/18 0821
[2018-10-11] MEDS: NYSTATIN 100,000 UNIT/GM TOPICAL CREAM 15GM TUBE. TP SCH ×2 (08:47→20:17)
[2018-10-11] MEDS: NYSTATIN TOPICAL POWDER 15GM BOTTLE. TP SCH ×2 (08:47→20:17)
[2018-10-11] MEDS: LACTOBACILLUS RHAMNOSUS GG 1 CAPSULE. PO SCH ×2 (08:47→20:16)
[2018-10-11] MEDS: VANCOMYCIN 1.75 GM in IV NORMAL SALINE 500ML BAG 500 ML IV SCH ×2 (08:48→20:16)
--- NOTE | 2018-10-11 08:52 | PDOC ---
Infectious Disease Note Subjective: Subjective pt feels a little better less pain at scrotal area no fever, chills, nausea, vomiting, diarrhea or abdominal pain ROS: ROS Negative except for above. Vital Signs: Vital Signs Vital Signs Date Time Temp Pulse Resp B/P (MAP) Pulse Ox O2 Delivery O2 Flow Rate FiO2 10/11/18 07:26 Room Air 10/11/18 07:00 98.2 80 17 132/88 (103) 98 98.2 Physical Exam: PHYSICAL EXAM GENERAL: Alert, oriented x 3, sleepy male, arousable, in no acute distress, cooperative. HEENT: Normocephalic, atraumatic, anicteric. NECK: Supple. No JVD. LUNGS: Clear bilaterally. No wheezing. HEART: S1, S2. No gallops, murmurs or rubs. ABDOMEN: Soft, nontender, nondistended. No rebound, no guarding. EXTREMITIES: Right third toe shows dry erythematous lesion, mild skin breakdown, no purulence. GENITOURINARY: Has scrotal erythema, rash going up to the right inner thigh. No fluctuance, nontender. No induration. LYMPHATICS: No inguinal lymphadenopathy. CENTRAL NERVOUS SYSTEM: Alert and oriented x 3. Grossly nonfocal. PSYCHIATRIC: Cooperative, appropriate mood and affect. DERMATOLOGIC: No generalized rashes except for above. Medications: Inpatient Meds: Current Medications Medications (Trade) Dose Ordered Sig/Blanco Start Time Stop Time Status Last Admin Dose Admin Ceftriaxone Sodium (Rocephin) 1 gm 1X ONCE 10/09/18 19:30 10/09/18 19:31 DC 10/09/18 19:06 1 GM Dextrose (Dextrose 50%-Water Syringe) 12.5 gm PRN Q15MIN PRN 10/09/18 19:30 Fentanyl Citrate (Fentanyl 2ml Vial) 50 mcg PRN Q1HR PRN 10/09/18 19:30 10/10/18 19:29 DC Influenza Virus Vaccine (Afluria Trivalent 0729-3371 Syringe) 0.5 ml ONCE ONCE 10/10/18 09:00 10/10/18 09:01 DC 10/10/18 12:38 0.5 ML Info (CONTRAST GIVEN -- Rx MONITORING) 1 each PRN DAILY PRN 10/09/18 18:15 10/11/18 18:14 Insulin Human Lispro (HumaLOG) 0-7 UNITS TIDWMEALS 10/10/18 08:00 10/10/18 17:27 6 UNITS Insulin Human Regular (HumuLIN R VIAL) 10 unit 1X ONCE 10/09/18 19:15 10/09/18 19:16 DC 10/09/18 19:14 10 UNIT Iohexol (Omnipaque 300 Mg/ml) 75 ml 1X ONCE 10/09/18 18:30 10/09/18 18:31 DC 10/09/18 18:04 75 ML Lactobacillus Rhamnosus (Culturelle) 1 cap BID 10/10/18 21:00 10/10/18 21:43 1 CAP Metoprolol Tartrate (Lopressor Vial) 5 mg 1X ONCE 10/09/18 18:00 10/09/18 18:01 DC Micafungin Sodium 100 mg/Dextrose 100 ml @ 100 mls/hr Q24H 10/10/18 15:00 10/10/18 15:12 100 MLS/HR Morphine Sulfate (Morphine Sulfate) 4 mg PRN Q2HR PRN 10/09/18 19:30 10/10/18 19:29 DC 10/10/18 08:52 4 MG Nystatin (Mycostatin) 1 nicko BID 10/09/18 21:00 10/10/18 21:44 1 NICKO Nystatin (Nystop) 1 nicko BID 10/09/18 21:00 10/10/18 21:44 1 NICKO Ondansetron HCl (Zofran) 4 mg PRN Q8HRS PRN 10/09/18 19:30 10/10/18 19:29 DC 10/10/18 17:27 4 MG Piperacillin Sod/ Tazobactam Sod 3.375 gm/Sodium Chloride 50 ml @ 100 mls/hr Q6HRS 10/10/18 18:00 10/11/18 05:52 100 MLS/HR Sodium Chloride 1,000 ml @ 125 mls/hr Q8H 10/09/18 22:00 10/10/18 21:59 DC 10/10/18 15:12 125 MLS/HR Vancomycin HCl (Vanco Per Pharmacy) 1 each PRN DAILY PRN 10/09/18 19:30 10/11/18 08:20 1 EACH Vancomycin HCl (Vancomycin Trough Level) 1 each 1X ONCE 10/11/18 07:30 10/11/18 07:31 DC 10/11/18 07:30 1 EACH Vancomycin HCl 1.75 gm/Sodium Chloride 500 ml @ 250 mls/hr Q12H 10/10/18 08:00 10/10/18 19:39 250 MLS/HR Vancomycin HCl 2 gm/Sodium Chloride 500 ml @ 250 mls/hr 1X ONCE 10/09/18 19:30 10/09/18 21:29 DC 10/09/18 19:42 250 MLS/HR Labs: Lab Laboratory Tests Test 10/10/18 11:26 10/10/18 16:24 10/10/18 21:10 10/11/18 07:15 Glucose (Fingerstick) 282 mg/dL (70-99) 270 mg/dL (70-99) 212 mg/dL (70-99) Vancomycin Level Trough 12.9 mcg/mL (10.0-20.0) Vancomycin Last Dose Date 10/10/18 Vancomycin Last Dose Time 2000 Test 10/11/18 07:43 Glucose (Fingerstick) 217 mg/dL (70-99) Objective: Assessment: 1. Early sepsis.source scrotal infection 2. Lactic acidosis. 3. Cellulitis of scrotum and right upper thigh. 4. Poorly controlled diabetes. 5. Rt 3rd toe erythema ,? diab foot infection, foot x-ray negative for osteomyelitis Plan: Plan of Care Continue IV vancomycin/ Zosyn/micafungin. Follow up cultures and susceptibility results. Continue local wound care. Monitor renal functions closely. We will modify treatment depending on clinical response. MILAGROS PONCE MD Oct 11, 2018 08:52
[2018-10-11] MEDS: INSULIN LISPRO 300 UNITS/3 ML INSULN.PEN. SQ SCH ×3 (08:55→17:38)
--- NOTE | 2018-10-11 10:59 | NUR ---
SW following. Discussed with RN, pt needing a couple of days of IV abx. No SW needs at this time. Pt has received self pay resource packet. SW will continue to follow.
[2018-10-11 11:00] VITALS: BP 128/90
--- NOTE | 2018-10-11 13:31 | PDOC ---
HARSHAL BARRSO APRN 10/11/18 1331: Provider Note Provider Note Discussed case with Dr. Santamaria and did do a brief exam on scrotum and penis. Current patient condition is significantly improved over pictures taken when he initially arrived. In addition patient denies any LUTS, hematuria, dysuria or significant Urologic history. At this time, we have no further recommendations for care, as we believe current treatment for skin condition is adequate and effective. Consult to Urology was then canceled. Pt given our card, all questions answered. LEIGHANN RIVER MD 10/11/18 1522: Provider Note Provider Note Agree with assessment and plan. HARSHAL BARROS APRN Oct 11, 2018 13:31 LEIGHANN RIVER MD Oct 11, 2018 15:22
[2018-10-11] MEDS: MICAFUNGIN 100 MG in IV DEXTROSE 5% 100ML 100 ML IV SCH (14:07)
[2018-10-11 15:00] VITALS: BP 151/97
--- NOTE | 2018-10-11 16:43 | PDOC ---
PROGRESS NOTES Chief Complaint Chief Complaint Cellulitis to groin and scrotum sepsis DM2 obesity, BMI 37 History of Present Illness History of Present Illness IV vancomycin. ID consult feels better pictures reviewed with Uro midlevel, marked improvement in 24 hours with current cont same, may be able to DC soon Vitals Vitals Vital Signs Date Time Temp Pulse Resp B/P (MAP) Pulse Ox O2 Delivery O2 Flow Rate FiO2 10/11/18 15:00 98.2 85 17 151/97 (115) 97 Room Air 98.2 Physical Exam Physical Exam GENERAL: Alert, oriented x 3, sleepy male, arousable, in no acute distress, cooperative. HEENT: Normocephalic, atraumatic, anicteric. NECK: Supple. No JVD. LUNGS: Clear bilaterally. No wheezing. HEART: S1, S2. No gallops, murmurs or rubs. ABDOMEN: Soft, nontender, nondistended. No rebound, no guarding. EXTREMITIES: Right third toe shows dry erythematous lesion, mild skin breakdown, no purulence. GENITOURINARY: Has scrotal erythema, rash going up to the right inner thigh. No fluctuance, nontender. No induration. LYMPHATICS: No inguinal lymphadenopathy. CENTRAL NERVOUS SYSTEM: Alert and oriented x 3. Grossly nonfocal. PSYCHIATRIC: Cooperative, appropriate mood and affect. DERMATOLOGIC: No generalized rashes except for above. General: Alert Heart: Normal S2 Abdomen: Normal bowel sounds Extremities: No clubbing, No cyanosis Skin: Other (rash groin, better) Labs LABS Laboratory Tests Test 10/10/18 21:10 10/11/18 07:15 10/11/18 07:43 10/11/18 11:21 Glucose (Fingerstick) 212 mg/dL (70-99) 217 mg/dL (70-99) 190 mg/dL (70-99) Vancomycin Level Trough 12.9 mcg/mL (10.0-20.0) Vancomycin Last Dose Date 10/10/18 Vancomycin Last Dose Time 1999 Comment Review of Relevant I have reviewed the following items nicolas (where applicable) has been applied. Labs Laboratory Tests Test 10/09/18 17:30 10/09/18 21:15 10/09/18 23:20 10/10/18 03:40 White Blood Count 10.7 x10^3/uL (4.0-11.0) 7.9 x10^3/uL (4.0-11.0) Red Blood Count 5.12 x10^6/uL (4.30-5.70) 4.67 x10^6/uL (4.30-5.70) Hemoglobin 15.7 g/dL (13.0-17.5) 14.2 g/dL (13.0-17.5) Hematocrit 46.7 % (39.0-53.0) 42.5 % (39.0-53.0) Mean Corpuscular Volume 91 fL (79-100) 91 fL (79-100) Mean Corpuscular Hemoglobin 31 pg (25-35) 30 pg (25-35) Mean Corpuscular Hemoglobin Concent 34 g/dL (31-37) 33 g/dL (31-37) Red Cell Distribution Width 13.2 % (11.5-14.5) 13.0 % (11.5-14.5) Platelet Count 294 x10^3/uL (140-400) 283 x10^3/uL (140-400) Neutrophils (%) (Auto) 83 % (31-73) 68 % (31-73) Lymphocytes (%) (Auto) 9 % (24-48) 21 % (24-48) Monocytes (%) (Auto) 7 % (0-9) 9 % (0-9) Eosinophils (%) (Auto) 1 % (0-3) 2 % (0-3) Basophils (%) (Auto) 0 % (0-3) 0 % (0-3) Neutrophils # (Auto) 8.9 x10^3uL (1.8-7.7) 5.3 x10^3uL (1.8-7.7) Lymphocytes # (Auto) 1.0 x10^3/uL (1.0-4.8) 1.6 x10^3/uL (1.0-4.8) Monocytes # (Auto) 0.7 x10^3/uL (0.0-1.1) 0.7 x10^3/uL (0.0-1.1) Eosinophils # (Auto) 0.1 x10^3/uL (0.0-0.7) 0.2 x10^3/uL (0.0-0.7) Basophils # (Auto) 0.0 x10^3/uL (0.0-0.2) 0.0 x10^3/uL (0.0-0.2) Sodium Level 133 mmol/L (136-145) 139 mmol/L (136-145) Potassium Level 4.2 mmol/L (3.5-5.1) 4.0 mmol/L (3.5-5.1) Chloride Level 95 mmol/L (98-107) 101 mmol/L (98-107) Carbon Dioxide Level 27 mmol/L (21-32) 29 mmol/L (21-32) Anion Gap 11 (6-14) 9 (6-14) Blood Urea Nitrogen 16 mg/dL (8-26) 11 mg/dL (8-26) Creatinine 1.3 mg/dL (0.7-1.3) 1.0 mg/dL (0.7-1.3) Estimated GFR (Cockcroft-Gault) 59.2 80.1 BUN/Creatinine Ratio 12 (6-20) Glucose Level 401 mg/dL (70-99) 214 mg/dL (70-99) Lactic Acid Level 4.0 mmol/L (0.4-2.0) 2.2 mmol/L (0.4-2.0) Calcium Level 9.2 mg/dL (8.5-10.1) 8.7 mg/dL (8.5-10.1) Total Bilirubin 0.4 mg/dL (0.2-1.0) Aspartate Amino Transf (AST/SGOT) 18 U/L (15-37) Alanine Aminotransferase (ALT/SGPT) 42 U/L (16-63) Alkaline Phosphatase 112 U/L (46-116) Total Protein 8.1 g/dL (6.4-8.2) Albumin 3.4 g/dL (3.4-5.0) Albumin/Globulin Ratio 0.7 (1.0-1.7) Urine Collection Type Unknown Urine Color Yellow Urine Clarity Clear Urine pH 6.0 Urine Specific [place] 1.010 Urine Protein Negative mg/dL (NEG-TRACE) Urine Glucose (UA) 500 mg/dL (NEG) Urine Ketones (Stick) Negative mg/dL (NEG) Urine Blood Negative (NEG) Urine Nitrite Negative (NEG) Urine Bilirubin Negative (NEG) Urine Urobilinogen Dipstick 0.2 mg/dL (0.2 mg/dL) Urine Leukocyte Esterase Negative (NEG) Urine RBC Occ /HPF (0-2) Urine WBC 1-4 /HPF (0-4) Urine Squamous Epithelial Cells Few /LPF Urine Bacteria 0 /HPF (0-FEW) Test 10/10/18 07:15 10/10/18 11:26 10/10/18 16:24 10/10/18 21:10 Glucose (Fingerstick) 156 mg/dL (70-99) 282 mg/dL (70-99) 270 mg/dL (70-99) 212 mg/dL (70-99) Test 10/11/18 07:15 10/11/18 07:43 10/11/18 11:21 Vancomycin Level Trough 12.9 mcg/mL (10.0-20.0) Vancomycin Last Dose Date 10/10/18 Vancomycin Last Dose Time 2000 Glucose (Fingerstick) 217 mg/dL (70-99) 190 mg/dL (70-99) Laboratory Tests Test 10/10/18 21:10 10/11/18 07:15 10/11/18 07:43 10/11/18 11:21 Glucose (Fingerstick) 212 mg/dL (70-99) 217 mg/dL (70-99) 190 mg/dL (70-99) Vancomycin Level Trough 12.9 mcg/mL (10.0-20.0) Vancomycin Last Dose Date 10/10/18 Vancomycin Last Dose Time 1999 Microbiology 10/09/18 Anaerobic/Aerobic Culture, Resulted Pending 10/09/18 Anaerobic Culture Result 1 (LUANNE), Resulted Pending 10/09/18 Aerobic Culture, Resulted Pending 10/09/18 Aerobic Culture Result 1 (LUANNE), Resulted Pending 10/09/18 Gram Stain - Final, Resulted 10/09/18 Gram Stain Result 1 (LUANNE) - Final, Resulted 10/09/18 Gram Stain Result 2 (LUANNE) - Final, Resulted Medications Current Medications Fentanyl Citrate (Fentanyl 2ml Vial) 50 mcg 1X ONCE IV Last administered on at 18:14; Start 10/09/18 at 17:15; Stop 10/09/18 at 17:16; Status DC Metoprolol Tartrate (Lopressor Vial) 5 mg 1X ONCE IVP ; Start 10/09/18 at 18:00 ; Stop 10/09/18 at 18:01; Status DC Iohexol (Omnipaque 300 Mg/ml) 75 ml 1X ONCE IV Last administered on 10/09/18at 18:04; Start 10/09/18 at 18:30; Stop 10/09/18 at 18:31; Status DC Info (CONTRAST GIVEN -- Rx MONITORING) 1 each PRN DAILY PRN MC SEE COMMENTS; Start 10/09/18 at 18:15; Stop 10/11/18 at 18:14 Sodium Chloride 1,000 ml @ 1,000 mls/hr 1X ONCE IV Last administered on at 18:49; Start 10/09/18 at 19:00; Stop 10/09/18 at 19:59; Status DC Nystatin (Nystop) 1 nicko BID TP Last administered on 10/11/18 08:47; Start at 21:00 Nystatin (Mycostatin) 1 nicko BID TP Last administered on 10/11/18at 08:47; Start 10/09/18 at 21:00 Ceftriaxone Sodium (Rocephin) 1 gm 1X ONCE IVP Last administered on 10/09/18at 19:06; Start 10/09/18 at 19:30; Stop 10/09/18 at 19:31; Status DC Insulin Human Regular (HumuLIN R VIAL) 10 unit 1X ONCE IV Last administered on 10/09/18at 19:14; Start 10/09/18 at 19:15; Stop 10/09/18 at 19:16; Status DC Sodium Chloride 1,000 ml @ 1,000 mls/hr 1X ONCE IV Last administered on at 20:24; Start 10/09/18 at 19:15; Stop 10/09/18 at 20:14; Status DC Vancomycin HCl (Vanco Per Pharmacy) 1 each PRN DAILY PRN MC SEE COMMENTS Last administered on 10/11/18at 08:20; Start 10/09/18 at 19:30 Vancomycin HCl 2 gm/Sodium Chloride 500 ml @ 250 mls/hr 1X ONCE IV Last administered on 10/09/18at 19:42; Start 10/09/18 at 19:30; Stop 10/09/18 at 21:29 ; Status DC Ondansetron HCl (Zofran) 4 mg PRN Q8HRS PRN IV NAUSEA/VOMITING Last administered on 10/10/18at 17:27; Start 10/09/18 at 19:30; Stop 10/10/18 at 19:29 ; Status DC Morphine Sulfate (Morphine Sulfate) 4 mg PRN Q2HR PRN IV PAIN Last administered on 10/10/18 08:52; Start 10/09/18 at 19:30; Stop 10/10/18 at 19:29 ; Status DC Fentanyl Citrate (Fentanyl 2ml Vial) 50 mcg PRN Q1HR PRN IV PAIN; Start at 19:30; Stop 10/10/18 at 19:29; Status DC Sodium Chloride 1,000 ml @ 125 mls/hr Q8H IV Last administered on 10/10/18at 15 :12; Start 10/09/18 at 22:00; Stop 10/10/18 at 21:59; Status DC Insulin Human Lispro (HumaLOG) 0-7 UNITS TIDWMEALS SQ Last administered on 10/11at 11:57; Start 10/10/18 at 08:00 Dextrose (Dextrose 50%-Water Syringe) 12.5 gm PRN Q15MIN PRN IV SEE COMMENTS; Start 10/09/18 at 19:30 Vancomycin HCl 1.75 gm/Sodium Chloride 500 ml @ 250 mls/hr Q12H IV Last administered on 10/11/18at 08:48; Start 10/10/18 at 08:00 Vancomycin HCl (Vancomycin Trough Level) 1 each 1X ONCE MC Last administered on 10/11/18at 07:30; Start 10/11/18 at 07:30; Stop 10/11/18 at 07:31; Status DC Influenza Virus Vaccine (Afluria Trivalent [id number] Syringe) 0.5 ml ONCE ONCE VAX IM Last administered on 10/10/18at 12:38; Start 10/10/18 at 09:00; Stop at 09:01; Status DC Piperacillin Sod/ Tazobactam Sod 3.375 gm/Sodium Chloride 50 ml @ 100 mls/hr Q6HRS IV Last administered on 10/11/18at 11:54; Start 10/10/18 at 18:00 Micafungin Sodium 100 mg/Dextrose 100 ml @ 100 mls/hr Q24H IV Last administered on 10/11/18at 14:07; Start 10/10/18 at 15:00 Lactobacillus Rhamnosus (Culturelle) 1 cap BID PO Last administered on at 08:47; Start 10/10/18 at 21:00 Active Scripts Active Vitals/I & O Vital Sign - Last 24 Hours 10/10/18 10/10/18 10/10/18 10/11/18 19:00 20:00 23:00 03:00 Temp 97.9 97.9 98.1 97.9 97.9 98.1 Pulse 79 98 87 Resp 18 16 18 B/P (MAP) 124/62 (82) 123/79 (94) 112/61 (78) Pulse Ox 94 96 96 O2 Delivery Room Air Room Air Room Air Room Air 10/11/18 10/11/18 10/11/18 10/11/18 07:00 07:26 11:00 15:00 Temp 98.2 97.3 98.2 98.2 97.3 98.2 Pulse 80 71 85 Resp 17 18 17 B/P (MAP) 132/88 (103) 128/90 (103) 151/97 (115) Pulse Ox 98 97 97 O2 Delivery Room Air Room Air Room Air Room Air Intake and Output 10/10/18 10/10/18 10/11/18 15:00 23:00 07:00 Intake Total 2000 ml 1825 ml 850 ml Output Total 1350 ml 1100 ml Balance 2000 ml 475 ml -250 ml LANIE THOMAS MD Oct 11, 2018 16:43
[2018-10-11 19:25] VITALS: BP 134/100
[2018-10-11 23:25] VITALS: BP 131/92
[2018-10-11] MEDS ORDERED: INSULIN LISPRO 300 UNITS/3 ML INSULN.PEN. SQ ONE (23:30)
[2018-10-12] MEDS: PIPERACILLIN/TAZOBACTAM 3.375 GM in IV NORMAL SALINE 50ML 50 ML IV SCH ×3 (01:36→11:26)
[2018-10-12 03:23] VITALS: BP 151/101
[2018-10-12 07:00] VITALS: BP 145/91
[2018-10-12 07:38] LABS: CREATININE 1.1 mg/dL (0.7-1.3); GFR 71.8
[2018-10-12] MEDS ORDERED: ACETAMINOPHEN 325 MG TABLET. PO PRN (08:15)
[2018-10-12] MEDS: LACTOBACILLUS RHAMNOSUS GG 1 CAPSULE. PO SCH (08:20)
[2018-10-12] MEDS: NYSTATIN 100,000 UNIT/GM TOPICAL CREAM 15GM TUBE. TP SCH (08:21)
[2018-10-12] MEDS: NYSTATIN TOPICAL POWDER 15GM BOTTLE. TP SCH (08:21)
[2018-10-12] MEDS: INSULIN LISPRO 300 UNITS/3 ML INSULN.PEN. SQ SCH ×2 (08:26→12:20)
--- NOTE | 2018-10-12 09:12 | NUR ---
SW following. Discussed with RN, pt has self pay resources. RN advised no SW needs at this time. SW will continue to follow if any discharge planning needs should arise.
--- NOTE | 2018-10-12 10:08 | PDOC ---
Infectious Disease Note Subjective: Subjective pt feels much better no scrotal pain swelling has improved no fever, chills, nausea, vomiting, diarrhea or abdominal pain ROS: ROS Negative except for above. Vital Signs: Vital Signs Vital Signs Date Time Temp Pulse Resp B/P (MAP) Pulse Ox O2 Delivery O2 Flow Rate FiO2 10/12/18 07:00 98.1 85 18 145/91 (109) 95 Room Air 98.1 Physical Exam: PHYSICAL EXAM GENERAL: Alert, oriented x 3, sleepy male, arousable, in no acute distress, cooperative. HEENT: Normocephalic, atraumatic, anicteric. NECK: Supple. No JVD. LUNGS: Clear bilaterally. No wheezing. HEART: S1, S2. No gallops, murmurs or rubs. ABDOMEN: Soft, nontender, nondistended. No rebound, no guarding. EXTREMITIES: Right third toe shows dry erythematous lesion, mild skin breakdown, no purulence. GENITOURINARY: Has scrotal erythema, rash going up to the right inner thigh. No fluctuance, nontender. No induration. LYMPHATICS: No inguinal lymphadenopathy. CENTRAL NERVOUS SYSTEM: Alert and oriented x 3. Grossly nonfocal. PSYCHIATRIC: Cooperative, appropriate mood and affect. DERMATOLOGIC: No generalized rashes except for above. Medications: Inpatient Meds: Current Medications Medications (Trade) Dose Ordered Sig/Blanco Start Time Stop Time Status Last Admin Dose Admin Acetaminophen (Tylenol) 650 mg PRN Q6HRS PRN 10/12/18 08:15 10/12/18 08:20 650 MG Ceftriaxone Sodium (Rocephin) 1 gm 1X ONCE 10/09/18 19:30 10/09/18 19:31 DC 10/09/18 19:06 1 GM Dextrose (Dextrose 50%-Water Syringe) 12.5 gm PRN Q15MIN PRN 10/09/18 19:30 Fentanyl Citrate (Fentanyl 2ml Vial) 50 mcg PRN Q1HR PRN 10/09/18 19:30 10/10/18 19:29 DC Influenza Virus Vaccine (Afluria Trivalent [id number] Syringe) 0.5 ml ONCE ONCE 10/10/18 09:00 10/10/18 09:01 DC 10/10/18 12:38 0.5 ML Info (CONTRAST GIVEN -- Rx MONITORING) 1 each PRN DAILY PRN 10/09/18 18:15 10/11/18 18:14 DC Insulin Human Lispro (HumaLOG) 3 units 1X ONCE 10/11/18 23:30 10/11/18 23:31 DC 10/11/18 23:29 3 UNITS Insulin Human Regular (HumuLIN R VIAL) 10 unit 1X ONCE 10/09/18 19:15 10/09/18 19:16 DC 10/09/18 19:14 10 UNIT Iohexol (Omnipaque 300 Mg/ml) 75 ml 1X ONCE 10/09/18 18:30 10/09/18 18:31 DC 10/09/18 18:04 75 ML Lactobacillus Rhamnosus (Culturelle) 1 cap BID 10/10/18 21:00 10/12/18 08:20 1 CAP Metoprolol Tartrate (Lopressor Vial) 5 mg 1X ONCE 10/09/18 18:00 10/09/18 18:01 DC Micafungin Sodium 100 mg/Dextrose 100 ml @ 100 mls/hr Q24H 10/10/18 15:00 10/11/18 14:07 100 MLS/HR Morphine Sulfate (Morphine Sulfate) 4 mg PRN Q2HR PRN 10/09/18 19:30 10/10/18 19:29 DC 10/10/18 08:52 4 MG Nystatin (Mycostatin) 1 nicko BID 10/09/18 21:00 10/12/18 08:21 1 NICKO Nystatin (Nystop) 1 nicko BID 10/09/18 21:00 10/12/18 08:21 1 NICKO Ondansetron HCl (Zofran) 4 mg PRN Q8HRS PRN 10/09/18 19:30 10/10/18 19:29 DC 10/10/18 17:27 4 MG Piperacillin Sod/ Tazobactam Sod 3.375 gm/Sodium Chloride 50 ml @ 100 mls/hr Q6HRS 10/10/18 18:00 10/12/18 05:40 100 MLS/HR Sodium Chloride 1,000 ml @ 125 mls/hr Q8H 10/09/18 22:00 10/10/18 21:59 DC 10/10/18 15:12 125 MLS/HR Vancomycin HCl (Vanco Per Pharmacy) 1 each PRN DAILY PRN 10/09/18 19:30 10/11/18 08:20 1 EACH Vancomycin HCl (Vancomycin Trough Level) 1 each 1X ONCE 10/11/18 07:30 10/11/18 07:31 DC 10/11/18 07:30 1 EACH Vancomycin HCl 1.75 gm/Sodium Chloride 500 ml @ 250 mls/hr Q12H 10/10/18 08:00 10/11/18 20:16 250 MLS/HR Vancomycin HCl 2 gm/Sodium Chloride 500 ml @ 250 mls/hr 1X ONCE 10/09/18 19:30 10/09/18 21:29 DC 10/09/18 19:42 250 MLS/HR Labs: Lab Laboratory Tests Test 10/11/18 11:21 10/11/18 16:39 10/11/18 22:20 10/12/18 06:38 Glucose (Fingerstick) 190 mg/dL (70-99) 261 mg/dL (70-99) 285 mg/dL (70-99) Creatinine 1.1 mg/dL (0.7-1.3) Estimated GFR (Cockcroft-Gault) 71.8 Test 10/12/18 07:48 Glucose (Fingerstick) 272 mg/dL (70-99) Objective: Assessment: 1. Early sepsis.source scrotal infection 2. Lactic acidosis. 3. Cellulitis of scrotum and right upper thigh. 4. Poorly controlled diabetes. 5. Rt 3rd toe erythema ,? diab foot infection, foot x-ray negative for osteomyelitis Plan: Plan of Care DC home on doxycycline, fluconazole and augmentin Continue local wound care. Optimal dm control f/u with us if needed D/W MILAGROS CABA MD Oct 12, 2018 10:08
[2018-10-12 11:00] VITALS: BP 129/75
[2018-10-12] MEDS: VANCOMYCIN 1.75 GM in IV NORMAL SALINE 500ML BAG 500 ML IV SCH (11:26)
[2018-10-12] MEDS ORDERED: NYST60PO TP (11:44)
[2018-10-12] MEDS ORDERED: AMOX1TAB61 PO (11:44)
[2018-10-12] MEDS ORDERED: LACT1CAP19 PO (11:44)
[2018-10-12] MEDS ORDERED: DOXY100C14 PO (11:44)
[2018-10-12] MEDS ORDERED: FLUC200T4 PO (11:45)
[2018-10-12] MEDS ORDERED: METF500T16 PO (11:46)
[2018-10-12] MEDS ORDERED: LISI2.5T PO (11:47)
[2018-10-12] MEDS ORDERED: metFORMIN 500 MG TABLET PO SCH (12:00)
--- NOTE | 2018-10-12 14:44 | NUR ---
Pt was given all discharge instructions, follow up info, new prescriptions and teaching. Pt was escorted out via wheelchair by transportation, will be returning home with self care. All belongings left at time of discharge. Pt left at 1430. Pt was given extra nystatin powder before leaving, since he s self pay. Pt is stable. Alert x4.
--- NOTE | 2018-10-12 16:39 | PDOC3 ---
Discharge Summary Visit Information Date of Admission: Oct 09, 2018 Date of Discharge: Oct 12, 2018 Admitting Diagnosis: cellultis Final Diagnosis Cellulitis to groin and scrotum sepsis DM2 obesity, BMI 37 Brief Hospital Course Allergies Allergies Coded Allergies Type Severity Reaction Last Updated Verified diphenhydramine Adverse Reaction Intermediate NERVE REACTION 10/12/18 Yes Vital Signs Vital Signs Date Time Temp Pulse Resp B/P (MAP) Pulse Ox O2 Delivery O2 Flow Rate FiO2 10/12/18 11:00 97.9 67 18 129/75 (93) 94 Room Air 97.9 Lab Results Laboratory Tests Test 10/10/18 21:10 10/11/18 07:15 10/11/18 07:43 10/11/18 11:21 Glucose (Fingerstick) 212 mg/dL (70-99) 217 mg/dL (70-99) 190 mg/dL (70-99) Vancomycin Level Trough 12.9 mcg/mL (10.0-20.0) Vancomycin Last Dose Date 10/10/18 Vancomycin Last Dose Time 1999 Test 10/11/18 16:39 10/11/18 22:20 10/12/18 06:38 10/12/18 07:48 Glucose (Fingerstick) 261 mg/dL (70-99) 285 mg/dL (70-99) 272 mg/dL (70-99) Creatinine 1.1 mg/dL (0.7-1.3) Estimated GFR (Cockcroft-Gault) 71.8 Test 10/12/18 11:38 Glucose (Fingerstick) 168 mg/dL (70-99) Laboratory Tests Test 10/11/18 16:39 10/11/18 22:20 10/12/18 06:38 10/12/18 07:48 Glucose (Fingerstick) 261 mg/dL (70-99) 285 mg/dL (70-99) 272 mg/dL (70-99) Creatinine 1.1 mg/dL (0.7-1.3) Estimated GFR (Cockcroft-Gault) 71.8 Test 10/12/18 11:38 Glucose (Fingerstick) 168 mg/dL (70-99) Brief Hospital Course Mr. Robles is a 47 old male admit with rash to groin DM2 poor control scrotal and groin, redness and swelling better with IV abx DC on PO abx pictures reviewed with Uro midlevel, Discharge Information Condition at Discharge: Improved Follow Up: Weeks Disposition/Orders: D/C to Home Scheduled Amoxicillin/Potassium Clav (Augmentin 875-125 Tablet) 1 Each Tablet, 1 TAB PO BID for cellulitis, #14 Prescribed by: LANIE THOMAS on 10/12/18 1144 Doxycycline Monohydrate (Doxycycline Monohydrate) 100 Mg Capsule, 1 CAP PO BID for cellulitis, #14 Prescribed by: LANIE THOMAS on 10/12/18 1144 Fluconazole (Fluconazole) 200 Mg Tablet, 1 TAB PO DAILY for skin rash, #7 Prescribed by: LANIE THOMAS on 10/12/18 1145 Lactobacillus Rhamnosus Gg (Culturelle) 1 Each Cap.sprink, 1 CAP PO BID for gut health while on antibiotic, #60 Prescribed by: LANIE THOMAS on 10/12/18 1144 Lisinopril (Lisinopril) 2.5 Mg Tablet, 1 TAB PO DAILY for hypertension and diabetes, #30 Ref 1 Prescribed by: LANIE THOMAS on 10/12/18 1147 Metformin Hcl (Metformin Hcl) 500 Mg Tablet, 500 MG PO BIDWMEALS for ANTI- DIABETIC, #60 Ref 0 Prescribed by: LANIE THOMAS on 10/12/18 1146 Nystatin (Nystop) 60 Gm Powder, 1 QUINTON TP BID for rash, #30 Prescribed by: LANIE THOMAS on 10/12/18 1144 Patient Instructions Patient Instructions face to face eval pt to return to work 10/16 LANIE THOMAS MD Oct 12, 2018 16:39
== END 2018-10-12 14:30 | disposition home or self-care (01) | DRG 872 ==
LOC: ER 16:29 → 4 NORTH 19:21
PROVIDERS: ADMIT Family Medicine; ATTEND Family Medicine
DX: A41.9 Sepsis, unspecified organism (principal); L03.314 Cellulitis of groin; E87.2 Acidosis; E11.65 Type 2 diabetes mellitus with hyperglycemia; E66.9 Obesity, unspecified; N49.2 Inflammatory disorders of scrotum; Z68.37 Body mass index [BMI] 37.0-37.9, adult; Z83.3 Family history of diabetes mellitus; Z91.19 Patient's noncompliance with other medical treatment and regimen; Z88.8 Allergy status to other drugs, medicaments and biological substances
CPT/HCPCS: 36415; 72193; 73630; 80048; 80053; 80202; 81001; 82565; 82962; 83605; 85025; 87040; 87071; 87075; 90471; 90756; 96361; 96365; 96375; J0696; J1815; J2248; J2270; J2405; J2543; J3010; J3370; J7030; J7040; Q9967; 99285-25; Q2035

== ENCOUNTER 2020-09-16 11:58 | Emergency (ER) | payer SELFPAY ==
[~2020-09-16] VITALS: Ht 175.3 cm; Wt 102.0 kg
[~2020-09-16 11:58] MED LIST changes: +AMOX1TAB61 PO; +DOXY100C14 PO; +FLUC200T4 PO; +LACT1CAP19 PO; +LISI2.5T PO; +METF500T16 PO; +NYST60PO TP
[2020-09-16] MEDS ORDERED: AMOX500T PO (12:43)
--- NOTE | 2020-09-16 12:43 | PHYS DOC ---
Past Medical History Past Medical History: Diabetes-Type II, Other Additional Past Medical Histor: SEASONAL ALLERGIES Past Surgical History: Other Additional Past Surgical Histo: hernia Smoking Status: Never Smoker Alcohol Use: None Drug Use: None General Adult EDM: Chief Complaint: EARACHE/EAR PAIN HPI: HPI: Patient is a 49 year old male with history of diabetes type 2, who presents to the ED today complaining of 8 out of 10 sharp bilateral ear pain intermittently for 6 months. Patient denies any fever, coughing or congestion. He states he did not come in initially to be evaluated because he did not want to be exposed to COVID-19. Of note he is in the ED with a mask not covering his nose. Denies anything specifically exacerbating or relieving his pain Review of Systems: Review of Systems: Constitutional: Denies fever or chills. [] Eyes: Denies change in visual acuity. [] HENT: Reports bilateral ear pain. Denies nasal congestion or sore throat. [] Respiratory: Denies cough or shortness of breath. [] Cardiovascular: Denies chest pain or edema. [] GI: Denies abdominal pain, nausea, vomiting, bloody stools or diarrhea. [] : Denies dysuria. [] Musculoskeletal: Denies back pain or joint pain. [] Integument: Denies rash. [] Neurologic: Denies headache, focal weakness or sensory changes. [] Psychiatric: Denies depression or anxiety. [] Heart Score: Risk Factors: Risk Factors: DM, Current or recent (<one month) smoker, HTN, HLP, family history of CAD, obesity. Risk Scores: Score 0 - 3: 2.5% MACE over next 6 weeks - Discharge Home Score 4 - 6: 20.3% MACE over next 6 weeks - Admit for Clinical Observation Score 7 - 10: 72.7% MACE over next 6 weeks - Early Invasive Strategies Allergies: Allergies: Allergies Coded Allergies Type Severity Reaction Last Updated Verified diphenhydramine Adverse Reaction Intermediate itching 09/16/20 Yes Physical Exam: PE: Constitutional: Well developed, well nourished, no acute distress, non-toxic appearance. [] HENT: Normocephalic, atraumatic, bilateral external ears normal, oropharynx moist, no oral exudates, nose normal. Bilateral TMs are slightly injected. Eyes: PERRLA, EOMI, conjunctiva normal, no discharge. [] Neck: Normal range of motion, no tenderness, supple, no stridor. [] Cardiovascular:Heart rate regular rhythm, no murmur [] Lungs & Thorax: Bilateral breath sounds clear to auscultation [] Abdomen: Bowel sounds normal, soft, no tenderness, no masses, no pulsatile masses. [] Skin: Warm, dry, no erythema, no rash. [] Back: No tenderness, no CVA tenderness. [] Extremities: No tenderness, no cyanosis, no clubbing, ROM intact, no edema. [] Neurologic: Alert and oriented X 3, normal motor function, normal sensory function, no focal deficits noted. [] Psychologic: Affect normal, judgement normal, mood normal. [] Current Patient Data: Vital Signs: Vital Signs Date Time Temp Pulse Resp B/P (MAP) Pulse Ox O2 Delivery O2 Flow Rate FiO2 09/16/20 12:18 98.3 99 20 185/84 (117) 98 Room Air 98.3 EKG: EKG: [] Radiology/Procedures: Radiology/Procedures: [] Course & Med Decision Making: Course & Med Decision Making Pertinent Labs and Imaging studies reviewed. (See chart for details) This is a 49-year-old male patient presenting to the ED today with bilateral otitis media. Discharged with amoxicillin. Patient's blood pressure was notably high at 185/84. It from the ED could have hypertension that he needs to be handled with a primary care doctor. He started complaining stating he has no insurance and providers are trying to make money out of him. He was also complaining about the Covid vaccine stating they are injecting people with poison and people are dying, RN Maria Guadalupe was in the room he informed patient this is not the right place to argue about vaccines. He was also complaining amoxicillin could be expensive. Informed him he can try [facility] and can also try online coupons for rx. [place] Disclaimer: Sd Disclaimer: This electronic medical record was generated, in whole or in part, using a voice recognition dictation system. Departure Departure Impression: Primary Impression: Otitis media Qualified Codes: H65.196 - Other acute nonsuppurative otitis media, recurrent, bilateral Additional Impression: Hypertension Qualified Codes: I10 - Essential (primary) hypertension Disposition: 01 DC HOME SELF CARE/HOMELESS Condition: STABLE Referrals: NO PCP (PCP) Please establish care with a primary care doctor in follow-up SUZANNE MILTON MD follow up in 2 weeks Patient Instructions: Hypertension, Otitis Media, Adult Additional Instructions: Please take the prescribed antibiotics until completed. Your blood pressure was 185/84. This is very high, you need to follow-up with the primary care doctor for blood pressure management Scripts Amoxicillin (AMOXICILLIN) 500 Mg Tablet 1 TAB PO BID, #20 TAB Prov: TASHI ALEMAN APRN 09/16/20 TASHI ALEMAN APRN Sep 16, 2020 12:43
[2020-09-16 12:45] VITALS: BP 177/89
== END 2020-09-16 12:45 | disposition home or self-care (01) ==
LOC: ER 11:58
DX: H65.196 Other acute nonsuppurative otitis media, recurrent, bilateral (principal); I10 Essential (primary) hypertension; H92.03 Otalgia, bilateral; E11.9 Type 2 diabetes mellitus without complications; Z98.890 Other specified postprocedural states; Z88.8 Allergy status to other drugs, medicaments and biological substances
CPT/HCPCS: 99283

== ENCOUNTER 2021-05-06 19:09 | Inpatient (IN) | payer SELFPAY ==
[~2021-05-06] VITALS: Ht 175.3 cm; Wt 106.0 kg
[~2021-05-06 19:09] MED LIST changes: +AMOX500T PO; +CYCL10TA19 PO; -CYCL10TA2 PO; +DOXY-181 PO; -DOXY100C14 PO; -LISI2.5T PO; +LISI2.5T12 PO
[2021-05-06 21:06] LABS: INFLUENZA A PATIENT NEGATIVE (NEGATIVE); INFLUENZA B PATIENT NEGATIVE (NEGATIVE)
--- NOTE | 2021-05-06 21:11 | PHYS DOC ---
Past Medical History Past Medical History: Diabetes-Type II, Other Additional Past Medical Histor: SEASONAL ALLERGIES ([employer]) Past Surgical History: No Surgical History Additional Past Surgical Histo: hernia ([employer]) Smoking Status: Never Smoker Alcohol Use: None Drug Use: None (IGGY COBOS APRN) General Adult EDM: Chief Complaint: FLU SYMPTOM HPI: HPI: Patient is a 50 year old male who presents with 1 week of feeling feverish, nasal congestion, cough, body aches, occasional shortness of breath. Has been taking ibuprofen. He is tachycardic and satting at 94% on room air. He states he does have nausea intermittently. Patient has a history of diabetes and asthma. He does not smoke. He is not vaccinated for Covid. Rates his discomfort at a 5 out of 10. Denies abdominal pain, back pain, dizziness, headache, vomiting, diarrhea, constipation, chest pain, focal weakness, numbness or tingling, syncope, vision change. ([employer]) Review of Systems: Review of Systems: Constitutional: + fever or +chills. [] Eyes: Denies change in visual acuity. [] HENT: + nasal congestion or denies sore throat. [] Respiratory: Denies cough or + intermittent shortness of breath. [] Cardiovascular: Denies chest pain or edema. [] GI: Denies abdominal pain, + intermittent nausea, denies vomiting, bloody stools or diarrhea. [] : Denies dysuria. [] Musculoskeletal: Denies back pain or joint pain. + Body aches [] Integument: Denies rash. [] Neurologic: Denies headache, focal weakness or sensory changes. [] Endocrine: Denies polyuria or polydipsia. [] Lymphatic: Denies swollen glands. [] Psychiatric: Denies depression or anxiety. [] ([employer]) Heart Score: C/O Chest Pain: No Risk Factors: Risk Factors: DM, Current or recent (<one month) smoker, HTN, HLP, family history of CAD, obesity. Risk Scores: Score 0 - 3: 2.5% MACE over next 6 weeks - Discharge Home Score 4 - 6: 20.3% MACE over next 6 weeks - Admit for Clinical Observation Score 7 - 10: 72.7% MACE over next 6 weeks - Early Invasive Strategies ([facility]) Allergies: Allergies: Allergies Coded Allergies Type Severity Reaction Last Updated Verified diphenhydramine Adverse Reaction Intermediate itching 09/16/20 [address]) Physical Exam: PE: Constitutional: Well developed, well nourished, no acute distress, non-toxic appearance. [] HENT: Normocephalic, atraumatic, bilateral external ears normal, oropharynx moist, no oral exudates, nose normal. [] Eyes: PERRLA, EOMI, conjunctiva normal, no discharge. [] Neck: Normal range of motion, no tenderness, supple, no stridor. [] Cardiovascular:Heart rate tachycardic regular rhythm, no murmur [] Lungs & Thorax: Bilateral upper breath sounds clear lower diminished to auscultation [] Abdomen: Bowel sounds normal, soft, no tenderness, no masses, no pulsatile mas ses. [] Skin: Warm, dry, no erythema, no rash. [] Back: No tenderness, no CVA tenderness. [] Extremities: No tenderness, no cyanosis, no clubbing, ROM intact, no edema. [] Neurologic: Alert and oriented X 3, normal motor function, normal sensory function, no focal deficits noted. [] Psychologic: Affect normal, judgement normal, mood normal. [] [facility]) Current Patient Data: Vital Signs: Vital Signs Date Time Temp Pulse Resp B/P (MAP) Pulse Ox O2 Delivery O2 Flow Rate FiO2 05/06/21 20:37 98.3 112 20 173/84 (113) 95 Room Air 98.3 ([facility]) EKG: EK and read by Dr. Malcolm is sinus tachycardia and no STEMI ([facility] Radiology/Procedures: Radiology/Procedures: [] Impression: [facility] [address] [place] [address] IMAGING REPORT Signed PATIENT: RAFFY CHRISTOPHER ACCOUNT: [id number] : 1970 LOCATION: ER AGE: 50 SEX: M EXAM STATUS: REG ER ORD. PHYSICIAN: IGGY COBOS APRN REASON: cough, flu symptoms PROCEDURE: PORTABLE CHEST 1V EXAM: AP View of the chest DATE: 05/06/2021 8:56 PM INDICATION: Reason: cough, flu symptoms / Spl. Instructions: / History: COMPARISON: No Prior FINDINGS: Heart is mildly enlarged. Aorta is tortuous. Diffuse bilateral parenchymal airspace opacities likely consolidative process such as pneumonia. Imaging follow up to resolution is recommended. No pleural effusion or pneumothorax. IMPRESSION: 1. Diffuse bilateral parenchymal airspace opacities likely consolidative process such as pneumonia, including Covid pneumonia. Imaging follow up to resolution is recommended. Electronically signed by: Saul Cobb MD (05/06/2021 9:58 PM) [facility] DICTATED and SIGNED BY: SAUL COBB MD DATE: 05/06/21 [id number] (IGGY COBOS APRN) Course & Med Decision Making: Course & Med Decision Making Pertinent Labs and Imaging studies reviewed. (See chart for details) See HPI. Alert and oriented x4. Ambulatory with a steady gait. Speaks in full clear sentences. Nasal congestion. States he is coughing up white phlegm. Lungs are clear in upper lobes and diminished in lower lobes. 94% on room air. He is tachycardic in the 110's. Patient is Covid positive. ABG shows that he is not hypoxic. Patient not requiring oxygenation. He has received azithromycin and Rocephin. Chest x-ray does show pneumonia. Patient is eating and tolerating p.o. He has received one bag of normal saline. Patient is still tachycardic. Patient's troponin is 0.018. A second troponin has been ordered for at midnight. 2314: Patient is signed over to Dr. Malcolm. [] (IGGY COBOS APRN) Course & Med Decision Making I have participated in the care of this patient and I have reviewed and agree with all pertinent clinical information above including history, exam, and recommendations. Jonny Malcolm DO (JONNY MALCOLM DO) Sd Disclaimer: Sd Disclaimer: This electronic medical record was generated, in whole or in part, using a voice recognition dictation system. (IGGY COBOS APRN) COVID-19 Patient Risks: Age 65 or older: No Sign of co-morbidity: Yes Exp to person + for COVID: Yes Exp to PUI: No Travel from affected area: No Lower respiratory symptoms: Yes Fever: Yes Other: Yes (nausea) (IGGY COBOS APRN) PPE Use: Full PPE with N95 mask or PAPR: Yes (IGGY CO[employer]OS APRN) Departure Departure Impression: Primary Impression: COVID-19 Additional Impression: Pneumonia Qualified Codes: J18.9 - Pneumonia, unspecified organism Condition: STABLE Referrals: NO PCP (PCP) Patient Instructions: Pneumonia, Adult IGGY COBOS APRN May 06, 2021 21:11 JONNY MALCOLM DO May 07, 2021 00:19
[2021-05-06] MEDS ORDERED: predniSONE 10 MG TABLET PO ONE (21:30)
[2021-05-06] MEDS ORDERED: cefTRIAXone IV Push 1 GM VIAL. IVP ONE (22:00)
[2021-05-06] MEDS ORDERED: AZITHRMYCN 500MG IVPB FOR OMNI 250 ML IV ONE (22:00)
[2021-05-06] MEDS ORDERED: IV NORMAL SALINE 1000ML BAG 1,000 ML IV ONE (22:00)
--- NOTE | 2021-05-06 22:00 | RAD ---
EXAM: AP View of the chest DATE: 05/06/2021 8:56 PM INDICATION: Reason: cough, flu symptoms / Spl. Instructions: / History: COMPARISON: No Prior FINDINGS: Heart is mildly enlarged. Aorta is tortuous. Diffuse bilateral parenchymal airspace opacities likely consolidative process such as pneumonia. Imag ing follow up to resolution is recommended. No pleural effusion or pneumothorax. IMPRESSION: 1. Diffuse bilateral parenchymal airspace opacities likely consolidative process such as pneumonia, including Covid pneumonia. Imaging follow up to resolution is recommended. Electronically signed by: Saul Morton MD (05/06/2021 9:58 PM) JEANNETTE
[2021-05-06 22:34] LABS: BASO % 0 % (0-3); EOS % 0 % (0-3); HEMATOCRIT 48.2 % (39.0-53.0); HEMOGLOBIN 16.6 g/dL (13.0-17.5); LYMPH # 0.6 x10^3/uL (1.0-4.8); LYMPH % 17 % (24-48); MEAN CORPUSCULAR HEMOGLOBIN 31 pg (25-35); MEAN CORPUSCULAR HGB CONC 34 g/dL (31-37); MEAN CORPUSCULAR VOLUME 90 fL (79-100); MONO # 0.3 x10^3/uL (0.0-1.1); MONO % 8 % (0-9); NEUT # 2.7 x10^3/uL (1.8-7.7); NEUT % 75 % (31-73); PLATELET COUNT 111 x10^3/uL (140-400); RED BLOOD COUNT 5.36 x10^6/uL (4.30-5.70); RED CELL DISTRIBUTION WIDTH 13.2 % (11.5-14.5); WHITE BLOOD COUNT 3.6 x10^3/uL (4.0-11.0)
[2021-05-06 22:43] LABS: CALCIUM 8.9 mg/dL (8.5-10.1); CREATININE 1.3 mg/dL (0.7-1.3); GFR 58.4; POTASSIUM 4.8 mmol/L (3.5-5.1)
[2021-05-06 22:49] LABS: ALBUMIN 3.3 g/dL (3.4-5.0); ALBUMIN/GLOBULIN RATIO 0.8 (1.0-1.7); TOTAL BILIRUBIN 0.3 mg/dL (0.2-1.0); TOTAL PROTEIN 7.7 g/dL (6.4-8.2)
[2021-05-06 23:06] LABS: BILIRUBIN,URINE NEGATIVE (NEG); CLARITY,URINE CLEAR; COLOR,URINE YELLOW; NITRITE,URINE NEGATIVE (NEG); PH,URINE 5.5 (<5.0-8.0); PROTEIN,URINE 100 mg/dL (NEG-TRACE); UROBILINOGEN,URINE 0.2 mg/dL (0.2 mg/dL)
[2021-05-06 23:09] LABS: BASE EXCESS COOX -1 mmol/L (-3-3); HCO3 COOX 22 mmol/L (21-28); METHEMOGLOBIN 0.3 % (0.0-1.9); OXYHEMOGLOBIN 94.3 %; PCO2 COOX 33 mmHg (35-46); PO2 COOX 75 mmHg (75-108); SAT O2 COOX 95 % (92-99)
[2021-05-06 23:17] LABS: AMPHETAMINE/METHAMPHETAMINE NEG (NEG); BARBITURATES NEG (NEG); BENZODIAZEPINES NEG (NEG); CANNABINOIDS NEG (NEG); COCAINE NEG (NEG); METHADONE NEG (NEG); OPIATES NEG (NEG); PHENCYCLIDINE NEG (NEG)
[2021-05-06 23:21] LABS: AMORPHOUS SEDIMENT,UR PRESENT /HPF; BACTERIA,URINE 0 /HPF (0-FEW); RBC,URINE RARE /HPF (0-2); WBC,URINE 0 /HPF (0-4)
--- NOTE | 2021-05-06 23:50 | EKG ---
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
[2021-05-07] VITALS (7 sets, daily range): BP systolic 149–173; BP diastolic 80–102
[2021-05-07] MEDS ORDERED: DEXTROSE 50% 25 GM / 50ML DISP.SYRIN. IV PRN ×2 (02:30→08:30)
[2021-05-07] MEDS ORDERED: ACETAMINOPHEN 325 MG TABLET. PO PRN ×2 (02:30→08:30)
[2021-05-07] MEDS: CALCIUM CARBONATE 500 MG TAB.CHEW PO PRN (02:42)
[2021-05-07] MEDS ORDERED: INSULIN LISPRO 300 UNITS/3 ML VIAL. SQ ONE (03:00)
--- NOTE | 2021-05-07 03:00 | NUR ---
Patient picked up from ER via wheelchair by this RN. Patient able to walk to bathroom once in room and was placed on ICU monitors. Patient AOX4 able to orient to room and call light. Dr. Sutton called for admit orders.
[2021-05-07 05:04] LABS: HEMATOCRIT 46.3 % (39.0-53.0); HEMOGLOBIN 15.4 g/dL (13.0-17.5); RED BLOOD COUNT 5.1 x10^6/uL (4.30-5.70); WHITE BLOOD COUNT 3.3 x10^3/uL (4.0-11.0)
[2021-05-07 05:14] LABS: CALCIUM 8.4 mg/dL (8.5-10.1); CREATININE 1.1 mg/dL (0.7-1.3); GFR 70.9; MAGNESIUM 2.1 mg/dL (1.8-2.4); POTASSIUM 4.6 mmol/L (3.5-5.1)
[2021-05-07] MEDS ORDERED: IPRATRPIUM/ALBUTEROL 0.5/2.5MG 3 ML NEBU. NEB SCH (08:00)
[2021-05-07] MEDS: PANTOPRAZOLE 40 MG TABLET.DR. PO SCH (08:00)
[2021-05-07] MEDS: INSULIN LISPRO 300 UNITS/3 ML VIAL. SQ SCH ×3 (08:20→17:53)
--- NOTE | 2021-05-07 08:23 | PDOC1 ---
History and Physical Date of Service: DOS: DATE: 05/07/21 TIME: 08:16 Chief Complaint: Chief Complain: Flulike symptoms History of Present Illness: HPI: History obtained from discussion with the ED physician and chart review: 50-year-old male with past medical history of diabetes mellitus type 2, asthma who comes in with 1 week of flulike symptoms. Endorses shortness of breath, body aches and nasal congestion. Patient seen in the ED with tachycardia and saturating 94% on room air. Endorses also nausea. Patient is not vaccinated for Covid. Overall symptoms have worsened and that is why he wants to come into the ED to be evaluated. Denies abdominal pain, back pain, dizziness, headache, diarrhea, constipation, chest pain, focal weakness, numbness or tingling, syncope, vision change. Past Medical/Surgical History: PMH/PSH: Past Medical History: Diabetes-Type II, SEASONAL ALLERGIES Past Surgical History: Histo: hernia Allergies: Allergies: Coded Allergies: diphenhydramine (Verified Adverse Reaction, Intermediate, itching, 09/16/20) Family History: Family History: Reviewed with no relevant findings Social History: Social History: Smoking Status: Never Smoker Alcohol Use: None Drug Use: None Current Medications: Current Medications Current Medications Prednisone (Prednisone) 50 mg 1X ONCE PO Last administered on 05/06/21at 22:24; Start 05/06/21 at 21:30; Stop 05/06/21 at 21:31; Status DC Azithromycin 250 ml @ 250 mls/hr 1X ONCE IV Last administered on 05/06/21at 22:26; Start 05/06/21 at 22:00; Stop 05/06/21 at 22:59; Status DC Ceftriaxone Sodium (Rocephin) 1 gm 1X ONCE IVP Last administered on 05/06/21at 22:25; Start 05/06/21 at 22:00; Stop 05/06/21 at 22:01; Status DC Sodium Chloride 1,000 ml @ 1,000 mls/hr 1X ONCE IV Last administered on 05/06/21at 22:22; Start 05/06/21 at 22:00; Stop 05/06/21 at 22:59; Status DC Albuterol/ Ipratropium (Duoneb) 3 ml RTQID [facility] ; Start 05/07/21 at 08:00; Stop 05/08/21 at 07:59; Status Cancel Insulin Human Lispro (HumaLOG) 0-9 UNITS TIDWMEALS SQ ; Start 05/07/21 at 08:00 Dextrose (Dextrose 50%-Water Syringe) 12.5 gm PRN Q15MIN PRN IV SEE COMMENTS; Start 05/07/21 at 02:30 Insulin Human Lispro (HumaLOG) 10 units 1X ONCE SQ Last administered on 05/07/21at 02:43; Start 05/07/21 at 03:00; Stop 05/07/21 at 03:01; Status DC Acetaminophen (Tylenol) 650 mg PRN Q6HRS PRN PO MILD PAIN / TEMP > 100.3'F; Start 05/07/21 at 02:30 Pantoprazole Sodium (Protonix) 40 mg DAILYAC PO ; Start 05/07/21 at 07:30 Calcium Carbonate/ Glycine (Tums) 500 mg PRN AFTMEALHC PRN PO INDIGESTION Last administered on 05/07/21at 02:42; Start 05/07/21 at 02:30 Active Scripts Active Amoxicillin 500 Mg Tablet 1 Tab PO BID Lisinopril 2.5 Mg Tablet 1 Tab PO DAILY Metformin Hcl 500 Mg Tablet 500 Mg PO BIDWMEALS Fluconazole 200 Mg Tablet 1 Tab PO DAILY Doxycycline Monohydrate 100 Mg Capsule 1 Cap PO BID Augmentin 875-125 Tablet (Amoxicillin/Potassium Clav) 1 Each Tablet 1 Tab PO BID Culturelle (Lactobacillus Rhamnosus Gg) 1 Each Cap.sprink 1 Cap PO BID Nystop (Nystatin) 60 Gm Powder 1 Chanelle TP BID ROS: Review of Systems Review of System REVIEW OF SYSTEMS: GENERAL: Denies weakness SKIN: No bruising, hair changes or rashes. EYES: No blurred, double or loss of vision. NOSE AND THROAT: No history of nosebleeds, hoarseness or sore throat. HEART: No history of palpitations, chest pain or shortness of breath on exertion. LUNGS: Denies cough, hemoptysis, wheezing or shortness of breath. GASTROINTESTINAL: Denies changes in appetite, nausea, vomiting, diarrhea or constipation. GENITOURINARY: No history of frequency, urgency, hesitancy or nocturia. NEUROLOGIC: Denies history of numbness, tingling, or tremor. PSYCHIATRIC: No history of panic, anxiety or depression. ENDOCRINE: No history of heat or cold intolerance, polyuria or polydipsia. EXTREMITIES: Denies joint pain, pain on walking or stiffness. Physical Exam: Vital Signs: Vital Signs Date Time Temp Pulse Resp B/P (MAP) Pulse Ox O2 Delivery O2 Flow Rate FiO2 05/07/21 04:00 98.7 95 20 149/83 (105) 94 Room Air 98.7 Physcial Exam: GEN: No apparent distress. Alert and oriented HEENT: Normal cephalic, atraumatic, external auditory canals are patent EYES: Extraocular muscles are intact, pupil are equally round and reactive to light and accommodation MUSCULOSKELETAL: Well developed , well nourished, good range of motion ENDOCRINE: No thyromegaly was palpated LYMPHATICS: No cervical chain or axillary nodes were noted HEMATOPOIETIC: No bruising NECK: Supple, no JVD, no thyromegaly was noted LUNGS: Clear to auscultation in all lung franks without rhonchi or wheezing HEART: RRR, S!, S2 present. Peripheral pulses intact, no obvious murmurs noted ABDOMEN: Soft, nontender. Positive bowel sounds, no organomegaly, normal bowel sounds EXTREMITIES: Without clubbing, cyanosis, or edema. Pedal pulses intact. Negative Homans sign NEUROLOGIC: Normal speech and tone. A&O x 3, moves all extremities, no obvious focal deficits PSYCHIATRIC: Normal affect, normal mood. Stable SKIN: No ulcerations or rashes, good skin turgor, no jaundice VASCULAR: Good capillary refill, neurovascular bundle appears to be intact Labs: Labs: Laboratory Tests Test 05/06/21 20:37 05/06/21 22:00 05/06/21 22:35 05/07/21 00:20 Influenza Type A Antigen Negative (NEGATIVE) Influenza Type B Antigen Negative (NEGATIVE) SARS-CoV-2 Antigen (Rapid) Positive (NEGATIVE) White Blood Count 3.6 x10^3/uL (4.0-11.0) Red Blood Count 5.36 x10^6/uL (4.30-5.70) Hemoglobin 16.6 g/dL (13.0-17.5) Hematocrit 48.2 % (39.0-53.0) Mean Corpuscular Volume 90 fL (79-100) Mean Corpuscular Hemoglobin 31 pg (25-35) Mean Corpuscular Hemoglobin Concent 34 g/dL (31-37) Red Cell Distribution Width 13.2 % (11.5-14.5) Platelet Count 111 x10^3/uL (140-400) Neutrophils (%) (Auto) 75 % (31-73) Lymphocytes (%) (Auto) 17 % (24-48) Monocytes (%) (Auto) 8 % (0-9) Eosinophils (%) (Auto) 0 % (0-3) Basophils (%) (Auto) 0 % (0-3) Neutrophils # (Auto) 2.7 x10^3/uL (1.8-7.7) Lymphocytes # (Auto) 0.6 x10^3/uL (1.0-4.8) Monocytes # (Auto) 0.3 x10^3/uL (0.0-1.1) Eosinophils # (Auto) 0.0 x10^3/uL (0.0-0.7) Basophils # (Auto) 0.0 x10^3/uL (0.0-0.2) Urine Collection Type Unknown Urine Color Yellow Urine Clarity Clear Urine pH 5.5 (<5.0-8.0) Urine Specific [place] >=1.030 (1.000-1.030) Urine Protein 100 mg/dL (NEG-TRACE) Urine Glucose (UA) >=1000 mg/dL (NEG) Urine Ketones (Stick) 40 mg/dL (NEG) Urine Blood Trace (NEG) Urine Nitrite Negative (NEG) Urine Bilirubin Negative (NEG) Urine Urobilinogen Dipstick 0.2 mg/dL (0.2 mg/dL) Urine Leukocyte Esterase Negative (NEG) Urine RBC Rare /HPF (0-2) Urine WBC 0 /HPF (0-4) Urine Squamous Epithelial Cells Occ /LPF Urine Amorphous Sediment Present /HPF Urine Bacteria 0 /HPF (0-FEW) Urine Mucus Slight /LPF Sodium Level 131 mmol/L (136-145) Potassium Level 4.8 mmol/L (3.5-5.1) Chloride Level 93 mmol/L (98-107) Carbon Dioxide Level 29 mmol/L (21-32) Anion Gap 9 (6-14) Blood Urea Nitrogen 18 mg/dL (8-26) Creatinine 1.3 mg/dL (0.7-1.3) Estimated GFR (Cockcroft-Gault) 58.4 BUN/Creatinine Ratio 14 (6-20) Glucose Level 355 mg/dL (70-99) Lactic Acid Level 1.4 mmol/L (0.4-2.0) Calcium Level 8.9 mg/dL (8.5-10.1) Total Bilirubin 0.3 mg/dL (0.2-1.0) Aspartate Amino Transf (AST/SGOT) 51 U/L (15-37) Alanine Aminotransferase (ALT/SGPT) 110 U/L (16-63) Alkaline Phosphatase 146 U/L (46-116) Troponin I Quantitative 0.018 ng/mL (0.000-0.055) 0.027 ng/mL (0.000-0.055) AO-Fkc-C-Type Natriuretic Peptide 39 pg/mL (0-124) Total Protein 7.7 g/dL (6.4-8.2) Albumin 3.3 g/dL (3.4-5.0) Albumin/Globulin Ratio 0.8 (1.0-1.7) Lipase 168 U/L (73-393) Urine Opiates Screen Neg (NEG) Urine Methadone Screen Neg (NEG) Urine Barbiturates Neg (NEG) Urine Phencyclidine Screen Neg (NEG) Urine Amphetamine/Methamphetamine Neg (NEG) Urine Benzodiazepines Screen Neg (NEG) Urine Cocaine Screen Neg (NEG) Urine Cannabinoids Screen Neg (NEG) Urine Ethyl Alcohol Neg (NEG) O2 Saturation 95 % (92-99) Arterial Blood pH 7.44 (7.35-7.45) Arterial Blood pCO2 at Patient Temp 33 mmHg (35-46) Arterial Blood pO2 at Patient Temp 75 mmHg (75-108) Arterial Blood HCO3 22 mmol/L (21-28) Arterial Blood Base Excess -1 mmol/L (-3-3) Oxyhemoglobin 94.3 % Methemoglobin 0.3 % (0.0-1.9) Carbon Monoxide, Quantitative 0.2 % (0.0-1.9) Test 05/07/21 02:03 05/07/21 04:30 Glucose (Fingerstick) 445 mg/dL (70-99) White Blood Count 3.3 x10^3/uL (4.0-11.0) Red Blood Count 5.10 x10^6/uL (4.30-5.70) Hemoglobin 15.4 g/dL (13.0-17.5) Hematocrit 46.3 % (39.0-53.0) Mean Corpuscular Volume 91 fL (79-100) Mean Corpuscular Hemoglobin 30 pg (25-35) Mean Corpuscular Hemoglobin Concent 33 g/dL (31-37) Red Cell Distribution Width 13.0 % (11.5-14.5) Platelet Count 109 x10^3/uL (140-400) Sodium Level 133 mmol/L (136-145) Potassium Level 4.6 mmol/L (3.5-5.1) Chloride Level 96 mmol/L (98-107) Carbon Dioxide Level 26 mmol/L (21-32) Anion Gap 11 (6-14) Blood Urea Nitrogen 19 mg/dL (8-26) Creatinine 1.1 mg/dL (0.7-1.3) Estimated GFR (Cockcroft-Gault) 70.9 Glucose Level 362 mg/dL (70-99) Calcium Level 8.4 mg/dL (8.5-10.1) Magnesium Level 2.1 mg/dL (1.8-2.4) Troponin I Quantitative 0.022 ng/mL (0.000-0.055) Laboratory Tests Test 05/06/21 20:37 05/06/21 22:00 05/06/21 22:35 05/07/21 00:20 Influenza Type A Antigen Negative (NEGATIVE) Influenza Type B Antigen Negative (NEGATIVE) SARS-CoV-2 Antigen (Rapid) Positive (NEGATIVE) White Blood Count 3.6 x10^3/uL (4.0-11.0) Red Blood Count 5.36 x10^6/uL (4.30-5.70) Hemoglobin 16.6 g/dL (13.0-17.5) Hematocrit 48.2 % (39.0-53.0) Mean Corpuscular Volume 90 fL (79-100) Mean Corpuscular Hemoglobin 31 pg (25-35) Mean Corpuscular Hemoglobin Concent 34 g/dL (31-37) Red Cell Distribution Width 13.2 % (11.5-14.5) Platelet Count 111 x10^3/uL (140-400) Neutrophils (%) (Auto) 75 % (31-73) Lymphocytes (%) (Auto) 17 % (24-48) Monocytes (%) (Auto) 8 % (0-9) Eosinophils (%) (Auto) 0 % (0-3) Basophils (%) (Auto) 0 % (0-3) Neutrophils # (Auto) 2.7 x10^3/uL (1.8-7.7) Lymphocytes # (Auto) 0.6 x10^3/uL (1.0-4.8) Monocytes # (Auto) 0.3 x10^3/uL (0.0-1.1) Eosinophils # (Auto) 0.0 x10^3/uL (0.0-0.7) Basophils # (Auto) 0.0 x10^3/uL (0.0-0.2) Urine Collection Type Unknown Urine Color Yellow Urine Clarity Clear Urine pH 5.5 (<5.0-8.0) Urine Specific [place] >=1.030 (1.000-1.030) Urine Protein 100 mg/dL (NEG-TRACE) Urine Glucose (UA) >=1000 mg/dL (NEG) Urine Ketones (Stick) 40 mg/dL (NEG) Urine Blood Trace (NEG) Urine Nitrite Negative (NEG) Urine Bilirubin Negative (NEG) Urine Urobilinogen Dipstick 0.2 mg/dL (0.2 mg/dL) Urine Leukocyte Esterase Negative (NEG) Urine RBC Rare /HPF (0-2) Urine WBC 0 /HPF (0-4) Urine Squamous Epithelial Cells Occ /LPF Urine Amorphous Sediment Present /HPF Urine Bacteria 0 /HPF (0-FEW) Urine Mucus Slight /LPF Sodium Level 131 mmol/L (136-145) Potassium Level 4.8 mmol/L (3.5-5.1) Chloride Level 93 mmol/L (98-107) Carbon Dioxide Level 29 mmol/L (21-32) Anion Gap 9 (6-14) Blood Urea Nitrogen 18 mg/dL (8-26) Creatinine 1.3 mg/dL (0.7-1.3) Estimated GFR (Cockcroft-Gault) 58.4 BUN/Creatinine Ratio 14 (6-20) Glucose Level 355 mg/dL (70-99) Lactic Acid Level 1.4 mmol/L (0.4-2.0) Calcium Level 8.9 mg/dL (8.5-10.1) Total Bilirubin 0.3 mg/dL (0.2-1.0) Aspartate Amino Transf (AST/SGOT) 51 U/L (15-37) Alanine Aminotransferase (ALT/SGPT) 110 U/L (16-63) Alkaline Phosphatase 146 U/L (46-116) Troponin I Quantitative 0.018 ng/mL (0.000-0.055) 0.027 ng/mL (0.000-0.055) YL-Kei-W-Type Natriuretic Peptide 39 pg/mL (0-124) Total Protein 7.7 g/dL (6.4-8.2) Albumin 3.3 g/dL (3.4-5.0) Albumin/Globulin Ratio 0.8 (1.0-1.7) Lipase 168 U/L (73-393) Urine Opiates Screen Neg (NEG) Urine Methadone Screen Neg (NEG) Urine Barbiturates Neg (NEG) Urine Phencyclidine Screen Neg (NEG) Urine Amphetamine/Methamphetamine Neg (NEG) Urine Benzodiazepines Screen Neg (NEG) Urine Cocaine Screen Neg (NEG) Urine Cannabinoids Screen Neg (NEG) Urine Ethyl Alcohol Neg (NEG) O2 Saturation 95 % (92-99) Arterial Blood pH 7.44 (7.35-7.45) Arterial Blood pCO2 at Patient Temp 33 mmHg (35-46) Arterial Blood pO2 at Patient Temp 75 mmHg (75-108) Arterial Blood HCO3 22 mmol/L (21-28) Arterial Blood Base Excess -1 mmol/L (-3-3) Oxyhemoglobin 94.3 % Methemoglobin 0.3 % (0.0-1.9) Carbon Monoxide, Quantitative 0.2 % (0.0-1.9) Test 05/07/21 02:03 05/07/21 04:30 Glucose (Fingerstick) 445 mg/dL (70-99) White Blood Count 3.3 x10^3/uL (4.0-11.0) Red Blood Count 5.10 x10^6/uL (4.30-5.70) Hemoglobin 15.4 g/dL (13.0-17.5) Hematocrit 46.3 % (39.0-53.0) Mean Corpuscular Volume 91 fL (79-100) Mean Corpuscular Hemoglobin 30 pg (25-35) Mean Corpuscular Hemoglobin Concent 33 g/dL (31-37) Red Cell Distribution Width 13.0 % (11.5-14.5) Platelet Count 109 x10^3/uL (140-400) Sodium Level 133 mmol/L (136-145) Potassium Level 4.6 mmol/L (3.5-5.1) Chloride Level 96 mmol/L (98-107) Carbon Dioxide Level 26 mmol/L (21-32) Anion Gap 11 (6-14) Blood Urea Nitrogen 19 mg/dL (8-26) Creatinine 1.1 mg/dL (0.7-1.3) Estimated GFR (Cockcroft-Gault) 70.9 Glucose Level 362 mg/dL (70-99) Calcium Level 8.4 mg/dL (8.5-10.1) Magnesium Level 2.1 mg/dL (1.8-2.4) Troponin I Quantitative 0.022 ng/mL (0.000-0.055) Images: Images PROCEDURE: PORTABLE CHEST 1V IMPRESSION: 1. Diffuse bilateral parenchymal airspace opacities likely consolidative process such as pneumonia, including Covid pneumonia. Imaging follow up to resolution is recommended. Assessment/Plan Assessment/Plan COVID-19 pneumonia Acute electrolyte derangementhyponatremia, hypochloremia suggestive of volume depletion Hyperglycemia Transaminitis Obesity class I Neutropenia, lymphopenia History of diabetes mellitus Admit to ICU for further management Continue IV thiamine and vitamin C Pending CRP, D-dimer labs Titrate O2 supplementation to maintain O2 saturation greater than 92% Empiric IV antibiotics if patient has clinical presentation for bacterial pneumonia Lovenox for DVT prophylaxis Protonix if on steroids GI prophylaxis ADA diet Full code Discussed with RN and SW Disposition inpatient management as above Surrogate decision maker is the Justifications for Admission Other Justification EDGARDO BURNS MD May 07, 2021 08:23
[2021-05-07] MEDS ORDERED: PROCHLORPERAZINE 10 MG/2 ML VIAL. IV PRN (08:30)
[2021-05-07] MEDS ORDERED: SENNOSIDES 8.6 MG TABLET PO PRN (08:30)
[2021-05-07] MEDS ORDERED: ONDANSETRON PF 4 MG/2 ML VIAL. IVP PRN (08:30)
[2021-05-07] MEDS ORDERED: DOCUSATE SODIUM 100 MG CAPSULE. PO PRN (08:30)
[2021-05-07] MEDS ORDERED: cefTRIAXone IV Push 1 GM VIAL. IVP SCH (09:00)
[2021-05-07] MEDS ORDERED: AZITHROMYCIN 500 MG in IV NORMAL SALINE 250ML 250 ML IV SCH (09:00)
[2021-05-07] MEDS: IBUPROFEN 400 MG TABLET. PO PRN (10:48)
[2021-05-07] MEDS: ENOXAPARIN 40 MG/0.4 ML SYRINGE. SQ SCH (10:48)
[2021-05-07] MEDS: ZINC SULFATE 220 MG CAPSULE. PO SCH (10:49)
[2021-05-07] MEDS: ASCORBIC ACID 1,000 MG TABLET PO SCH ×3 (10:49→21:20)
--- NOTE | 2021-05-07 11:53 | PDOC2 ---
KALI CARBAJAL INSPECTOR FABRIC 05/07/21 1153: CARDIAC CONSULT DATE OF CONSULT Date of Consult DATE: 05/07/21 TIME: 11:50 REASON FOR CONSULT Reason for Consult: Chest pain REFERRING PHYSICIAN Referring Physician: Ebony SOURCE Source: Chart review, Patient HISTORY OF PRESENT ILLNESS HISTORY OF PRESENT ILLNESS This is a 50 yo male admitted for complains of URI symptoms. Also with some SOA and has been having productive cough with white sputum. Complains of chest heaviness radiating to back and started when he started having coughing spells. No nausea or vomiting. No recent falls or injury. His respiratory symptoms started about 5 days ago. No palpitations. No hx of CAD, VTE. Complains of chills but no dysgeusia or anosmia. He is unvaccinated for covid-19. PAST MEDICAL HISTORY Cardiovascular: HTN Pulmonary: Asthma CENTRAL NERVOUS SYSTEM: Other (No pertinent history) GI: No pertinent hx Heme/Onc: No pertinent hx Hepatobiliary: No pertinent hx Psych: No pertinent hx Musculoskeletal: Other (none) Rheumatologic: No pertinent hx Infectious disease: No pertinent hx ENT: No pertinent hx Endocrine: Diabetes (2) PAST SURGICAL HISTORY Past Surgical History: Hernia Repair FAMILY HISTORY Family History: Coronary Artery Disease (father) SOCIAL HISTORY Smoke: No ALCOHOL: none Drugs: None Lives: with Family CURRENT MEDICATIONS CURRENT MEDICATIONS Current Medications Medications (Trade) Dose Ordered Sig/Blanco Route PRN Reason Start Time Stop Time Status Last Admin Dose Admin Prednisone (Prednisone) 50 mg 1X ONCE PO 05/06/21 21:30 05/06/21 21:31 DC 05/06/21 22:24 Azithromycin 250 ml @ 250 mls/hr 1X ONCE IV 05/06/21 22:00 05/06/21 22:59 DC 05/06/21 22:26 Ceftriaxone Sodium (Rocephin) 1 gm 1X ONCE IVP 05/06/21 22:00 05/06/21 22:01 DC 05/06/21 22:25 Sodium Chloride 1,000 ml @ 1,000 mls/hr 1X ONCE IV 05/06/21 22:00 05/06/21 22:59 DC 05/06/21 22:22 Insulin Human Lispro (HumaLOG) 0-9 UNITS TIDWMEALS SQ 05/07/21 08:00 05/07/21 08:20 Insulin Human Lispro (HumaLOG) 10 units 1X ONCE SQ 05/07/21 03:00 05/07/21 03:01 DC 05/07/21 02:43 Pantoprazole Sodium (Protonix) 40 mg DAILYAC PO 05/07/21 07:30 05/07/21 08:00 Calcium Carbonate/ Glycine (Tums) 500 mg PRN AFTMEALHC PRN PO INDIGESTION 05/07/21 02:30 05/07/21 02:42 Ascorbic Acid (Vitamin C) 3,000 mg TID PO 05/07/21 09:00 05/07/21 10:49 Zinc Sulfate (Orazinc) 220 mg DAILY PO 05/07/21 09:00 05/07/21 10:49 Enoxaparin Sodium (Lovenox 40mg Syringe) 40 mg Q24H SQ 05/07/21 09:00 05/07/21 10:48 Ibuprofen (Motrin) 400 mg PRN Q8HRS PRN PO MODERATE PAIN 05/07/21 10:00 05/07/21 10:48 ALLERGIES ALLERGIES: Coded Allergies: diphenhydramine (Verified Adverse Reaction, Intermediate, itching, 09/16/20) ROS Review of System 14 point ROS evaluated with pertinent positives noted per HPI PHYSICAL EXAM General: Alert, Oriented X3, Cooperative, No acute distress HEENT: Atraumatic, Mucous membr. moist/pink Lungs: Clear to auscultation, Normal air movement Heart: Regular rate (SR), Normal S1, Normal S2, No murmurs Abdomen: Soft, No tenderness Extremities: No cyanosis, No edema Skin: No breakdown, No significant lesion Neuro: Normal speech, Sensation intact Psych/Mental Status: Mental status NL, Mood NL MUSCULOSKELETAL: Osteoarthritic changes both hands VITALS/I&O VITALS/I&O: Vital Signs Date Time Temp Pulse Resp B/P (MAP) Pulse Ox O2 Delivery O2 Flow Rate FiO2 05/07/21 04:00 98.7 95 20 149/83 (105) 94 Room Air 98.7 I & O 05/06/21 05/06/21 05/07/21 15:00 23:00 07:00 Intake Total 1550 ml Balance 1550 ml LABS Lab: Laboratory Tests Test 05/06/21 20:37 05/06/21 22:00 05/06/21 22:35 05/07/21 00:20 Influenza Type A Antigen Negative (NEGATIVE) Influenza Type B Antigen Negative (NEGATIVE) SARS-CoV-2 Antigen (Rapid) Positive (NEGATIVE) *A White Blood Count 3.6 x10^3/uL (4.0-11.0) L Red Blood Count 5.36 x10^6/uL (4.30-5.70) Hemoglobin 16.6 g/dL (13.0-17.5) Hematocrit 48.2 % (39.0-53.0) Mean Corpuscular Volume 90 fL (79-100) Mean Corpuscular Hemoglobin 31 pg (25-35) Mean Corpuscular Hemoglobin Concent 34 g/dL (31-37) Red Cell Distribution Width 13.2 % (11.5-14.5) Platelet Count 111 x10^3/uL (140-400) L Neutrophils (%) (Auto) 75 % (31-73) H Lymphocytes (%) (Auto) 17 % (24-48) L Monocytes (%) (Auto) 8 % (0-9) Eosinophils (%) (Auto) 0 % (0-3) Basophils (%) (Auto) 0 % (0-3) Neutrophils # (Auto) 2.7 x10^3/uL (1.8-7.7) Lymphocytes # (Auto) 0.6 x10^3/uL (1.0-4.8) L Monocytes # (Auto) 0.3 x10^3/uL (0.0-1.1) Eosinophils # (Auto) 0.0 x10^3/uL (0.0-0.7) Basophils # (Auto) 0.0 x10^3/uL (0.0-0.2) Urine Collection Type Unknown Urine Color Yellow Urine Clarity Clear Urine pH 5.5 (<5.0-8.0) Urine Specific [place] >=1.030 (1.000-1.030) Urine Protein 100 mg/dL (NEG-TRACE) Urine Glucose (UA) >=1000 mg/dL (NEG) Urine Ketones (Stick) 40 mg/dL (NEG) Urine Blood Trace (NEG) Urine Nitrite Negative (NEG) Urine Bilirubin Negative (NEG) Urine Urobilinogen Dipstick 0.2 mg/dL (0.2 mg/dL) Urine Leukocyte Esterase Negative (NEG) Urine RBC Rare /HPF (0-2) Urine WBC 0 /HPF (0-4) Urine Squamous Epithelial Cells Occ /LPF Urine Amorphous Sediment Present /HPF Urine Bacteria 0 /HPF (0-FEW) Urine Mucus Slight /LPF Sodium Level 131 mmol/L (136-145) L Potassium Level 4.8 mmol/L (3.5-5.1) Chloride Level 93 mmol/L (98-107) L Carbon Dioxide Level 29 mmol/L (21-32) Anion Gap 9 (6-14) Blood Urea Nitrogen 18 mg/dL (8-26) Creatinine 1.3 mg/dL (0.7-1.3) Estimated GFR (Cockcroft-Gault) 58.4 BUN/Creatinine Ratio 14 (6-20) Glucose Level 355 mg/dL (70-99) H Lactic Acid Level 1.4 mmol/L (0.4-2.0) Calcium Level 8.9 mg/dL (8.5-10.1) Total Bilirubin 0.3 mg/dL (0.2-1.0) Aspartate Amino Transferase (AST) 51 U/L (15-37) H Alanine Aminotransferase (ALT) 110 U/L (16-63) H Alkaline Phosphatase 146 U/L (46-116) H Troponin I Quantitative 0.018 ng/mL (0.000-0.055) 0.027 ng/mL (0.000-0.055) TO-Iwo-Y-Type Natriuretic Peptide 39 pg/mL (0-124) Total Protein 7.7 g/dL (6.4-8.2) Albumin 3.3 g/dL (3.4-5.0) L Albumin/Globulin Ratio 0.8 (1.0-1.7) L Lipase 168 U/L (73-393) Urine Opiates Screen Neg (NEG) Urine Methadone Screen Neg (NEG) Urine Barbiturates Neg (NEG) Urine Phencyclidine Screen Neg (NEG) Urine Amphetamine/Methamphetamine Neg (NEG) Urine Benzodiazepines Screen Neg (NEG) Urine Cocaine Screen Neg (NEG) Urine Cannabinoids Screen Neg (NEG) Urine Ethyl Alcohol Neg (NEG) O2 Saturation 95 % (92-99) Arterial Blood pH 7.44 (7.35-7.45) Arterial Blood pCO2 at Patient Temp 33 mmHg (35-46) L Arterial Blood pO2 at Patient Temp 75 mmHg (75-108) Arterial Blood HCO3 22 mmol/L (21-28) Arterial Blood Base Excess -1 mmol/L (-3-3) Oxyhemoglobin 94.3 % Methemoglobin 0.3 % (0.0-1.9) Carbon Monoxide, Quantitative 0.2 % (0.0-1.9) Test 05/07/21 02:03 05/07/21 04:30 05/07/21 08:19 05/07/21 08:50 Glucose (Fingerstick) 445 mg/dL (70-99) H 264 mg/dL (70-99) H White Blood Count 3.3 x10^3/uL (4.0-11.0) L Red Blood Count 5.10 x10^6/uL (4.30-5.70) Hemoglobin 15.4 g/dL (13.0-17.5) Hematocrit 46.3 % (39.0-53.0) Mean Corpuscular Volume 91 fL (79-100) Mean Corpuscular Hemoglobin 30 pg (25-35) Mean Corpuscular Hemoglobin Concent 33 g/dL (31-37) Red Cell Distribution Width 13.0 % (11.5-14.5) Platelet Count 109 x10^3/uL (140-400) L Sodium Level 133 mmol/L (136-145) L Potassium Level 4.6 mmol/L (3.5-5.1) Chloride Level 96 mmol/L (98-107) L Carbon Dioxide Level 26 mmol/L (21-32) Anion Gap 11 (6-14) Blood Urea Nitrogen 19 mg/dL (8-26) Creatinine 1.1 mg/dL (0.7-1.3) Estimated GFR (Cockcroft-Gault) 70.9 Glucose Level 362 mg/dL (70-99) H Calcium Level 8.4 mg/dL (8.5-10.1) L Magnesium Level 2.1 mg/dL (1.8-2.4) Troponin I Quantitative 0.022 ng/mL (0.000-0.055) C-Reactive Protein, Quantitative 50.7 mg/L (0-3.3) H Procalcitonin 0.15 ng/mL (0.00-0.10) H D-Dimer (Becca) 0.49 ug/mlFEU (0.00-0.50) Laboratory Tests 05/06/21 22:00 05/07/21 04:30 Laboratory Tests 05/06/21 22:00 05/07/21 04:30 ASSESSMENT/PLAN ASSESSMENT/PLAN 1. Atypical CP: r/t PNA 2. Covid-19 Pneumonia: unvaccinated 3. DM2: per PCP 4. HTN 5. Reactive sinus tachycardia Recommendations 1. Continue antibiotic therapy 2. Restart home lisinopril 3. Consider outpt TTE LINWOOD LOUISE MD 05/07/21 1714: CARDIAC CONSULT ASSESSMENT/PLAN ASSESSMENT/PLAN Pt. seen and examined. Agree with above LEAD SLOT TECHNICIAN note. Supportive care. KALI CARBAJAL APRN May 07, 2021 11:53 LINWOOD LOUISE MD May 07, 2021 17:14
[2021-05-07] MEDS ORDERED: INSULIN LISPRO 300 UNITS/3 ML VIAL. SQ SCH (12:00)
[2021-05-07] MEDS: THIAMINE 100 MG TABLET. PO SCH (12:47)
[2021-05-07] MEDS ORDERED: LISINOPRIL 10 MG TABLET PO ONE (13:15)
[2021-05-07] MEDS ORDERED: LABETALOL 20 MG/4 ML DISP.SYRIN. IVP PRN (13:15)
--- NOTE | 2021-05-07 15:42 | NUR ---
SS following for discharge planning. SS reviewed pt chart and discussed with pt RN. Pt is from home and is currently on room air. COVID19 positive. Pt on IV Rocephin and IV Azithromycin. Cardiology consulted. Self pay. Med Assist following. SS will continue to follow for discharge planning.
[2021-05-07] MEDS: cefTRIAXone IV Push 1 GM VIAL. IVP SCH (21:19)
[2021-05-07] MEDS: AZITHROMYCIN 500 MG in IV NORMAL SALINE 250ML 250 ML IV SCH (21:19)
[2021-05-07] MEDS: INSULIN GLARGINE SYRINGE. SQ SCH (21:20)
[2021-05-07] MEDS: LACTOBACILLUS RHAMNOSUS GG 1 CAPSULE. PO SCH (21:20)
[2021-05-07] MEDS: ZOLPIDEM 5 MG TABLET. PO PRN (21:53)
[2021-05-07] MEDS: LORazepam 0.5 MG TABLET PO PRN (22:03)
[2021-05-08 00:01] VITALS: BP 151/80
[2021-05-08 04:00] VITALS: BP 124/94
[2021-05-08 05:27] LABS: BASO % 1 % (0-3); EOS % 0 % (0-3); HEMATOCRIT 46.1 % (39.0-53.0); HEMOGLOBIN 15.4 g/dL (13.0-17.5); LYMPH # 0.6 x10^3/uL (1.0-4.8); LYMPH % 13 % (24-48); MEAN CORPUSCULAR HEMOGLOBIN 30 pg (25-35); MEAN CORPUSCULAR HGB CONC 33 g/dL (31-37); MEAN CORPUSCULAR VOLUME 91 fL (79-100); MONO # 0.3 x10^3/uL (0.0-1.1); MONO % 7 % (0-9); NEUT # 3.7 x10^3/uL (1.8-7.7); NEUT % 80 % (31-73); PLATELET COUNT 125 x10^3/uL (140-400); RED BLOOD COUNT 5.07 x10^6/uL (4.30-5.70); RED CELL DISTRIBUTION WIDTH 13.2 % (11.5-14.5); WHITE BLOOD COUNT 4.6 x10^3/uL (4.0-11.0)
[2021-05-08 05:29] LABS: CALCIUM 8.4 mg/dL (8.5-10.1); CREATININE 1.1 mg/dL (0.7-1.3); GFR 70.9; MAGNESIUM 1.9 mg/dL (1.8-2.4); PHOSPHORUS 3.1 mg/dL (2.6-4.7); POTASSIUM 4.6 mmol/L (3.5-5.1)
[2021-05-08] MEDS: PANTOPRAZOLE 40 MG TABLET.DR. PO SCH (08:23)
[2021-05-08 08:30] VITALS: BP 135/95
[2021-05-08] MEDS: ZINC SULFATE 220 MG CAPSULE. PO SCH (09:19)
[2021-05-08] MEDS: LACTOBACILLUS RHAMNOSUS GG 1 CAPSULE. PO SCH ×2 (09:20→20:22)
[2021-05-08] MEDS: ASCORBIC ACID 1,000 MG TABLET PO SCH ×3 (09:20→20:22)
[2021-05-08] MEDS: THIAMINE 100 MG TABLET. PO SCH (09:20)
[2021-05-08] MEDS: LISINOPRIL 10 MG TABLET PO SCH (09:21)
[2021-05-08] MEDS: INSULIN LISPRO 300 UNITS/3 ML VIAL. SQ SCH ×3 (09:23→17:40)
[2021-05-08] MEDS: ENOXAPARIN 40 MG/0.4 ML SYRINGE. SQ SCH (09:24)
[2021-05-08] MEDS: INSULIN GLARGINE SYRINGE. SQ SCH ×2 (09:36→20:51)
--- NOTE | 2021-05-08 11:15 | PDOC ---
[employer] PROGRESS NOTE Date of Service DOS: DATE: 05/08/21 TIME: 11:11 Chief Complaint Chief Complaint Assessment/Plan COVID-19 pneumonia Acute electrolyte derangementhyponatremia, hypochloremia suggestive of volume depletion Hyperglycemia Transaminitis Obesity class I Neutropenia, lymphopenia History of diabetes mellitus, pending hemoglobin A1c Admit to ICU for further management Continue IV thiamine and vitamin C Pending CRP, D-dimer labs Titrate O2 supplementation to maintain O2 saturation greater than 92% Empiric IV antibiotics if patient has clinical presentation for bacterial pneumonia Lovenox for DVT prophylaxis Protonix if on steroids GI prophylaxis ADA diet Full code Discussed with RN and SW Disposition inpatient management as above Surrogate decision maker is the History of Present Illness History of Present Illness 50-year-old male with past medical history of diabetes mellitus type 2, asthma who comes in with 1 week of flulike symptoms. Endorses shortness of breath, body aches and nasal congestion. Patient seen in the ED with tachycardia and saturating 94% on room air. Endorses also nausea. Patient is not vaccinated for Covid. Overall symptoms have worsened and that is why he wants to come into the ED to be evaluated. Denies abdominal pain, back pain, dizziness, headache, diarrhea, constipation, chest pain, focal weakness, numbness or tingling, syncope, vision change. 05/08/2021 No acute events overnight. T-max of 100.4. Patient eating quite a bit for breakfast. Sugars difficult control. I have increased his insulin to 30 units twice daily Lantus. Continue high intensity sliding scale. No desaturations saturating 94% on room air. No complaints with patient. No concerns nursing at this time. Patient's chart, labs, images were reviewed and discussed with RN Vitals/I&O Vitals/I&O: Vital Signs Date Time Temp Pulse Resp B/P (MAP) Pulse Ox O2 Delivery O2 Flow Rate FiO2 05/08/21 09:21 101 135/95 05/08/21 08:30 100.4 28 94 Room Air 100.4 I & O 05/07/21 05/07/21 05/08/21 15:00 23:00 07:00 Intake Total 1700 ml 600 ml Balance 1700 ml 600 ml Physical Exam General: Alert, Oriented X3, Cooperative, No acute distress Heart: Regular rate, Normal S1, Normal S2, No murmurs Abdomen: Soft, No tenderness Extremities: No cyanosis, No edema Skin: No breakdown, No significant lesion Labs Labs: Laboratory Tests Test 05/07/21 12:51 05/07/21 17:20 05/08/21 04:30 05/08/21 08:30 Glucose (Fingerstick) 396 mg/dL (70-99) 388 mg/dL (70-99) 287 mg/dL (70-99) White Blood Count 4.6 x10^3/uL (4.0-11.0) Red Blood Count 5.07 x10^6/uL (4.30-5.70) Hemoglobin 15.4 g/dL (13.0-17.5) Hematocrit 46.1 % (39.0-53.0) Mean Corpuscular Volume 91 fL (79-100) Mean Corpuscular Hemoglobin 30 pg (25-35) Mean Corpuscular Hemoglobin Concent 33 g/dL (31-37) Red Cell Distribution Width 13.2 % (11.5-14.5) Platelet Count 125 x10^3/uL (140-400) Neutrophils (%) (Auto) 80 % (31-73) Lymphocytes (%) (Auto) 13 % (24-48) Monocytes (%) (Auto) 7 % (0-9) Eosinophils (%) (Auto) 0 % (0-3) Basophils (%) (Auto) 1 % (0-3) Neutrophils # (Auto) 3.7 x10^3/uL (1.8-7.7) Lymphocytes # (Auto) 0.6 x10^3/uL (1.0-4.8) Monocytes # (Auto) 0.3 x10^3/uL (0.0-1.1) Eosinophils # (Auto) 0.0 x10^3/uL (0.0-0.7) Basophils # (Auto) 0.0 x10^3/uL (0.0-0.2) Sodium Level 133 mmol/L (136-145) Potassium Level 4.6 mmol/L (3.5-5.1) Chloride Level 97 mmol/L (98-107) Carbon Dioxide Level 26 mmol/L (21-32) Anion Gap 10 (6-14) Blood Urea Nitrogen 20 mg/dL (8-26) Creatinine 1.1 mg/dL (0.7-1.3) Estimated GFR (Cockcroft-Gault) 70.9 Glucose Level 341 mg/dL (70-99) Calcium Level 8.4 mg/dL (8.5-10.1) Phosphorus Level 3.1 mg/dL (2.6-4.7) Magnesium Level 1.9 mg/dL (1.8-2.4) Assessment and Plan Assessmemt and Plan Problems Medical Problems: (1) COVID-19 Status: Acute (2) Pneumonia Status: Acute Comment Review of Relevant I have reviewed the following items nicolas (where applicable) has been applied. Medications: Current Medications Medications (Trade) Dose Ordered Sig/Blanco Route PRN Reason Start Time Stop Time Status Last Admin Dose Admin Azithromycin 500 mg/Sodium Chloride 250 ml @ 250 mls/hr Q24H IV 05/07/21 21:00 05/11/21 21:59 05/07/21 21:19 Ceftriaxone Sodium (Rocephin) 1 gm Q24H IVP 05/07/21 21:00 05/11/21 21:01 05/07/21 21:19 Lisinopril (Prinivil) 10 mg DAILY PO 05/08/21 09:00 05/08/21 09:21 Lisinopril (Prinivil) 10 mg 1X ONCE PO 05/07/21 13:15 05/07/21 13:17 DC 05/07/21 14:13 Insulin Glargine (Lantus Syringe) 20 unit BID SQ 05/07/21 21:00 05/08/21 09:36 Lactobacillus Rhamnosus (Culturelle) 1 cap BID PO 05/07/21 21:00 05/08/21 09:20 Justifications for Admission Other Justification COVID-19 pneumonia EDGARDO BURNS MD May 08, 2021 11:15
[2021-05-08 12:00] VITALS: BP 136/88
[2021-05-08] MEDS: CALCIUM CARBONATE 500 MG TAB.CHEW PO PRN (14:32)
[2021-05-08] MEDS ORDERED: guaiFENesin ORAL 200 MG/10 ML LIQUID. PO PRN (15:00)
[2021-05-08] MEDS: BENZONATATE 100 MG CAPSULE. PO PRN ×2 (15:16→20:23)
[2021-05-08] MEDS: LORazepam 0.5 MG TABLET PO PRN ×2 (15:18→20:23)
[2021-05-08 16:00] VITALS: BP 130/68
[2021-05-08 20:00] VITALS: BP 145/88
[2021-05-08] MEDS: cefTRIAXone IV Push 1 GM VIAL. IVP SCH (20:22)
[2021-05-08] MEDS: ZOLPIDEM 5 MG TABLET. PO PRN (20:22)
[2021-05-08] MEDS: AZITHROMYCIN 500 MG in IV NORMAL SALINE 250ML 250 ML IV SCH (20:22)
[2021-05-08] MEDS: guaiFENesin/CODEINE 100mg/10mg 5 ML LIQUID PO PRN (20:23)
[2021-05-09] VITALS (7 sets, daily range): BP systolic 101–149; BP diastolic 61–96
[2021-05-09 03:10] LABS: BASO % 0 % (0-3); EOS % 0 % (0-3); HEMATOCRIT 43.8 % (39.0-53.0); LYMPH # 0.8 x10^3/uL (1.0-4.8); LYMPH % 17 % (24-48); MEAN CORPUSCULAR HEMOGLOBIN 31 pg (25-35); MEAN CORPUSCULAR HGB CONC 34 g/dL (31-37); MEAN CORPUSCULAR VOLUME 91 fL (79-100); MONO # 0.4 x10^3/uL (0.0-1.1); MONO % 8 % (0-9); NEUT # 3.5 x10^3/uL (1.8-7.7); NEUT % 75 % (31-73); PLATELET COUNT 148 x10^3/uL (140-400); RED BLOOD COUNT 4.84 x10^6/uL (4.30-5.70); RED CELL DISTRIBUTION WIDTH 12.9 % (11.5-14.5); WHITE BLOOD COUNT 4.7 x10^3/uL (4.0-11.0)
[2021-05-09 03:19] LABS: CALCIUM 8.2 mg/dL (8.5-10.1); CREATININE 1.1 mg/dL (0.7-1.3); GFR 70.9; MAGNESIUM 2.1 mg/dL (1.8-2.4); POTASSIUM 4.4 mmol/L (3.5-5.1)
[2021-05-09] MEDS: PANTOPRAZOLE 40 MG TABLET.DR. PO SCH (08:13)
[2021-05-09] MEDS: BENZONATATE 100 MG CAPSULE. PO PRN (08:14)
[2021-05-09] MEDS: INSULIN LISPRO 300 UNITS/3 ML VIAL. SQ SCH ×3 (08:39→17:44)
[2021-05-09] MEDS ORDERED: AZIT500T4 PO (08:45)
[2021-05-09] MEDS ORDERED: AMOX1TAB61 PO (08:45)
[2021-05-09] MEDS ORDERED: IV NORMAL SALINE 1000ML BAG 500 ML IV ONE (08:45)
[2021-05-09] MEDS ORDERED: LISI10TA16 PO (08:45)
--- NOTE | 2021-05-09 08:46 | DISCH ---
DISCHARGE INSTRUCTIONS Condition on Discharge Condition on Discharge: Stable (Quarantine for at least 10 days) Activity After Discharge Activity Instructions for Disc: Activity as tolerated Lifting Instructions after Dis: Do not lift >10 pounds Exercise Instruction after Dis: Walk 15 min, 3 x per day Driving Instructions after Dis: Do not drive today Diet after Discharge Diet after Discharge: Cardiac, Diabetic No Calorie Level Checks after Discharge DC Comment: Quarantine for at least [address] after DC Call your doctor for: Fever greater than 100 Follow-Up Follow up with: PCP within 2 weeks of discharge Treatment/Equipment after DC Adaptive Equipment Issued: None EDGARDO BURNS MD May 09, 2021 08:46
[2021-05-09] MEDS: INSULIN GLARGINE SYRINGE. SQ SCH ×2 (09:00→20:58)
[2021-05-09] MEDS: ZINC SULFATE 220 MG CAPSULE. PO SCH (09:11)
[2021-05-09] MEDS: LACTOBACILLUS RHAMNOSUS GG 1 CAPSULE. PO SCH ×2 (09:11→20:52)
[2021-05-09] MEDS: ASCORBIC ACID 1,000 MG TABLET PO SCH ×3 (09:12→20:52)
[2021-05-09] MEDS: THIAMINE 100 MG TABLET. PO SCH (09:12)
[2021-05-09] MEDS: LISINOPRIL 10 MG TABLET PO SCH (09:12)
[2021-05-09] MEDS: CALCIUM CARBONATE 500 MG TAB.CHEW PO PRN ×2 (09:13→14:30)
[2021-05-09] MEDS: ENOXAPARIN 40 MG/0.4 ML SYRINGE. SQ SCH (09:13)
--- NOTE | 2021-05-09 09:23 | EKG ---
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
--- NOTE | 2021-05-09 10:14 | RAD ---
AP chest. HISTORY: Covid pneumonia AP view was taken of the chest. There are bilateral diffuse infiltrates with little change or margina l worsening compared to the prior study. There is no pleural effusion. Heart is normal in size. IMPRESSION: 1. Bilateral diffuse infiltrates with little change or marginal worsening. Electronically signed by: Tavo Coronado MD (05/09/2021 10:11 AM) [facility]
--- NOTE | 2021-05-09 10:23 | EKG ---
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
[2021-05-09] MEDS ORDERED: REMDESIVIR LOAD in IV NORMAL SALINE 250ML TV IV ONE (11:30)
--- NOTE | 2021-05-09 12:37 | PDOC ---
[employer] PROGRESS NOTE Date of Service DOS: DATE: 05/09/21 TIME: 12:34 Chief Complaint Chief Complaint Assessment/Plan Acute hypoxia COVID-19 pneumonia Acute electrolyte derangementhyponatremia, hypochloremia suggestive of volume depletion Hyperglycemia Transaminitis Obesity class I Neutropenia, lymphopenia History of diabetes mellitus, pending hemoglobin A1c Admit to ICU for further management Continue IV thiamine and vitamin C Pending CRP, D-dimer labs Titrate O2 supplementation to maintain O2 saturation greater than 92% Empiric IV antibiotics if patient has clinical presentation for bacterial pneumonia Lovenox for DVT prophylaxis Protonix if on steroids GI prophylaxis ADA diet Full code Discussed with RN and SW Disposition inpatient management as above Surrogate decision maker is the History of Present Illness History of Present Illness 50-year-old male with past medical history of diabetes mellitus type 2, asthma who comes in with 1 week of flulike symptoms. Endorses shortness of breath, body aches and nasal congestion. Patient seen in the ED with tachycardia and saturating 94% on room air. Endorses also nausea. Patient is not vaccinated for Covid. Overall symptoms have worsened and that is why he wants to come into the ED to be evaluated. Denies abdominal pain, back pain, dizziness, headache, diarrhea, constipation, chest pain, focal weakness, numbness or tingling, syncope, vision change. 05/08/2021 No acute events overnight. T-max of 100.4. Patient eating quite a bit for breakfast. Sugars difficult control. I have increased his insulin to 30 units twice daily Lantus. Continue high intensity sliding scale. No desaturations saturating 94% on room air. No complaints with patient. No concerns nursing at this time. Patient's chart, labs, images were reviewed and discussed with RN 05/09/2021. No acute events overnight. Patient does not feel very well and continues to have cough. Not short of breath but just feels tired. Nurse help patient stand and patient desaturated down to 88 to 89%. Not currently on any oxygen but saturating in the low 90s while lying in bed. Repeat chest x-ray was done showing increased multifocal infiltrates. Will escalate care with IV steroids and Remdesivir. LFTs and creatinine is within acceptable limits. Pulmonology consulted. Vitals/I&O Vitals/I&O: Vital Signs Date Time Temp Pulse Resp B/P (MAP) Pulse Ox O2 Delivery O2 Flow Rate FiO2 05/09/21 09:12 95 143/79 05/09/21 08:00 Room Air 05/09/21 08:00 98.9 28 90 98.9 I & O 05/08/21 05/08/21 05/09/21 15:00 23:00 07:00 Intake Total 480 ml Balance 480 ml Physical Exam General: Alert, Oriented X3, Cooperative, No acute distress Heart: Regular rate, Normal S1, Normal S2, No murmurs Abdomen: Soft, No tenderness Extremities: No cyanosis, No edema Skin: No breakdown, No significant lesion Labs Labs: Laboratory Tests Test 05/08/21 12:47 05/08/21 17:40 05/09/21 02:45 05/09/21 08:20 Glucose (Fingerstick) 343 mg/dL (70-99) 311 mg/dL (70-99) 190 mg/dL (70-99) White Blood Count 4.7 x10^3/uL (4.0-11.0) Red Blood Count 4.84 x10^6/uL (4.30-5.70) Hemoglobin 15.0 g/dL (13.0-17.5) Hematocrit 43.8 % (39.0-53.0) Mean Corpuscular Volume 91 fL (79-100) Mean Corpuscular Hemoglobin 31 pg (25-35) Mean Corpuscular Hemoglobin Concent 34 g/dL (31-37) Red Cell Distribution Width 12.9 % (11.5-14.5) Platelet Count 148 x10^3/uL (140-400) Neutrophils (%) (Auto) 75 % (31-73) Lymphocytes (%) (Auto) 17 % (24-48) Monocytes (%) (Auto) 8 % (0-9) Eosinophils (%) (Auto) 0 % (0-3) Basophils (%) (Auto) 0 % (0-3) Neutrophils # (Auto) 3.5 x10^3/uL (1.8-7.7) Lymphocytes # (Auto) 0.8 x10^3/uL (1.0-4.8) Monocytes # (Auto) 0.4 x10^3/uL (0.0-1.1) Eosinophils # (Auto) 0.0 x10^3/uL (0.0-0.7) Basophils # (Auto) 0.0 x10^3/uL (0.0-0.2) Sodium Level 132 mmol/L (136-145) Potassium Level 4.4 mmol/L (3.5-5.1) Chloride Level 97 mmol/L (98-107) Carbon Dioxide Level 29 mmol/L (21-32) Anion Gap 6 (6-14) Blood Urea Nitrogen 17 mg/dL (8-26) Creatinine 1.1 mg/dL (0.7-1.3) Estimated GFR (Cockcroft-Gault) 70.9 Glucose Level 171 mg/dL (70-99) Calcium Level 8.2 mg/dL (8.5-10.1) Magnesium Level 2.1 mg/dL (1.8-2.4) Test 05/09/21 12:14 Glucose (Fingerstick) 198 mg/dL (70-99) Assessment and Plan Assessmemt and Plan Problems Medical Problems: (1) COVID-19 Status: Acute (2) Pneumonia Status: Acute Comment Review of Relevant I have reviewed the following items nicolas (where applicable) has been applied. Medications: Current Medications Medications (Trade) Dose Ordered Sig/Blanco Route PRN Reason Start Time Stop Time Status Last Admin Dose Admin Insulin Glargine (Lantus Syringe) 30 unit BID SQ 05/08/21 21:00 05/09/21 09:00 Guaifenesin (Robitussin) 200 mg PRN Q4HRS PRN PO COUGH, 2nd choice 05/08/21 15:00 05/08/21 15:16 Benzonatate (Tessalon Perle) 100 mg PRN Q8HRS PRN PO cough, 1st choice 05/08/21 15:00 05/09/21 11:07 DC 05/09/21 08:14 Guaifenesin/ Codeine Phosphate (Robitussin Ac) 5 ml PRN Q6HRS PRN PO COUGH, 3rd choice 05/08/21 19:30 05/08/21 20:23 Sodium Chloride 500 ml @ 250 mls/hr 1X ONCE IV 05/09/21 08:45 05/09/21 10:44 DC 05/09/21 09:00 Justifications for Admission Other Justification COVID-19 pneumonia EDGARDO BURNS MD May 09, 2021 12:37
[2021-05-09] MEDS ORDERED: ZINC SULFATE 220 MG CAPSULE. PO SCH (14:00)
[2021-05-09] MEDS ORDERED: ASCORBIC ACID 1,000 MG TABLET PO SCH (14:00)
[2021-05-09] MEDS ORDERED: THIAMINE 100 MG TABLET. PO SCH (14:00)
[2021-05-09] MEDS: guaiFENesin/CODEINE 100mg/10mg 5 ML LIQUID PO PRN (14:29)
[2021-05-09] MEDS: BENZONATATE 100 MG CAPSULE. PO SCH ×2 (14:30→20:56)
[2021-05-09] MEDS: cefTRIAXone IV Push 1 GM VIAL. IVP SCH (20:54)
[2021-05-09] MEDS: AZITHROMYCIN 500 MG in IV NORMAL SALINE 250ML 250 ML IV SCH (20:55)
[2021-05-10 04:00] VITALS: BP 155/84
[2021-05-10 05:26] LABS: BASO % 0 % (0-3); EOS % 0 % (0-3); HEMATOCRIT 44.6 % (39.0-53.0); HEMOGLOBIN 14.9 g/dL (13.0-17.5); LYMPH # 0.7 x10^3/uL (1.0-4.8); LYMPH % 18 % (24-48); MEAN CORPUSCULAR HEMOGLOBIN 30 pg (25-35); MEAN CORPUSCULAR HGB CONC 33 g/dL (31-37); MEAN CORPUSCULAR VOLUME 91 fL (79-100); MONO # 0.4 x10^3/uL (0.0-1.1); MONO % 9 % (0-9); NEUT # 3.1 x10^3/uL (1.8-7.7); NEUT % 73 % (31-73); PLATELET COUNT 166 x10^3/uL (140-400); RED BLOOD COUNT 4.91 x10^6/uL (4.30-5.70); WHITE BLOOD COUNT 4.2 x10^3/uL (4.0-11.0)
[2021-05-10 05:47] LABS: CALCIUM 8.1 mg/dL (8.5-10.1); GFR 79.1; MAGNESIUM 2.2 mg/dL (1.8-2.4); POTASSIUM 4.1 mmol/L (3.5-5.1)
[2021-05-10 06:10] LABS: HEMOGLOBIN A1C >15.5 % (4.8-5.6)
--- NOTE | 2021-05-10 07:45 | PDOC ---
[employer] PROGRESS NOTE Date of Service DOS: DATE: 05/10/21 TIME: 07:32 Chief Complaint Chief Complaint Assessment/Plan Acute hypoxia COVID-19 pneumonia Acute electrolyte derangementhyponatremia, hypochloremia suggestive of volume depletion Hyperglycemia Transaminitis Obesity class I Neutropenia, lymphopenia History of diabetes mellitus, pending hemoglobin A1c Admit to ICU for further management Continue IV thiamine and vitamin C Pending CRP, D-dimer labs Titrate O2 supplementation to maintain O2 saturation greater than 92% Empiric IV antibiotics if patient has clinical presentation for bacterial pneumonia Lovenox for DVT prophylaxis Protonix if on steroids GI prophylaxis ADA diet Full code Discussed with RN and SW Disposition inpatient management as above Surrogate decision maker is the History of Present Illness History of Present Illness 50-year-old male with past medical history of diabetes mellitus type 2, asthma who comes in with 1 week of flulike symptoms. Endorses shortness of breath, body aches and nasal congestion. Patient seen in the ED with tachycardia and saturating 94% on room air. Endorses also nausea. Patient is not vaccinated for Covid. Overall symptoms have worsened and that is why he wants to come into the ED to be evaluated. Denies abdominal pain, back pain, dizziness, headache, diarrhea, constipation, chest pain, focal weakness, numbness or tingling, syncope, vision change. 05/08/2021 No acute events overnight. T-max of 100.4. Patient eating quite a bit for breakfast. Sugars difficult control. I have increased his insulin to 30 units twice daily Lantus. Continue high intensity sliding scale. No desaturations saturating 94% on room air. No complaints with patient. No concerns nursing at this time. Patient's chart, labs, images were reviewed and discussed with RN 05/09/2021. No acute events overnight. Patient does not feel very well and continues to have cough. Not short of breath but just feels tired. Nurse help patient stand and patient desaturated down to 88 to 89%. Not currently on any oxygen but saturating in the low 90s while lying in bed. Repeat chest x-ray was done showing increased multifocal infiltrates. Will escalate care with IV steroids and Remdesivir. LFTs and creatinine is within acceptable limits. Pulmonology consulted. 05/10: Afebrile, currently breathing on 3 L nasal cannula. He is COVID-19 positive and due to increased O2 requirement he was initiated on steroids and remdesivir. Pulmonology has been consulted. CRP 79.5 yesterday; will discuss with pulmonology about initiating Tocilizumab. Chest x-ray yesterday showed bilateral diffuse infiltrates with little change or marginal worsening. Continue remdesivir, steroids, and supportive care. Hemoglobin A1c >15.5; upon discharge he should be initiated on glargine, however I have my concerns about his ability to self administer insulin and check his blood glucose at home. Vitals/I&O Vitals/I&O: Vital Signs Date Time Temp Pulse Resp B/P (MAP) Pulse Ox O2 Delivery O2 Flow Rate FiO2 05/10/21 04:00 98.0 89 26 155/84 (107) 95 Nasal Cannula 3.0 98.0 I & O 05/09/21 05/09/21 05/10/21 15:00 23:00 07:00 Intake Total 1620 ml 930 ml Output Total 1750 ml 900 ml Balance 1620 ml -820 ml -900 ml Physical Exam General: Alert, Oriented X3, Cooperative, No acute distress Heart: Regular rate, Normal S1, Normal S2, No murmurs Lungs: Clear Abdomen: Soft, No tenderness Extremities: No cyanosis, No edema Skin: No breakdown, No significant lesion Labs Labs: Laboratory Tests Test 05/09/21 08:20 05/09/21 12:10 05/09/21 12:14 05/09/21 17:27 Glucose (Fingerstick) 190 mg/dL (70-99) 198 mg/dL (70-99) 184 mg/dL (70-99) D-Dimer (Becca) 0.40 ug/mlFEU (0.00-0.50) C-Reactive Protein, Quantitative 79.5 mg/L (0-3.3) Test 05/10/21 04:55 White Blood Count 4.2 x10^3/uL (4.0-11.0) Red Blood Count 4.91 x10^6/uL (4.30-5.70) Hemoglobin 14.9 g/dL (13.0-17.5) Hematocrit 44.6 % (39.0-53.0) Mean Corpuscular Volume 91 fL (79-100) Mean Corpuscular Hemoglobin 30 pg (25-35) Mean Corpuscular Hemoglobin Concent 33 g/dL (31-37) Red Cell Distribution Width 13.0 % (11.5-14.5) Platelet Count 166 x10^3/uL (140-400) Neutrophils (%) (Auto) 73 % (31-73) Lymphocytes (%) (Auto) 18 % (24-48) Monocytes (%) (Auto) 9 % (0-9) Eosinophils (%) (Auto) 0 % (0-3) Basophils (%) (Auto) 0 % (0-3) Neutrophils # (Auto) 3.1 x10^3/uL (1.8-7.7) Lymphocytes # (Auto) 0.7 x10^3/uL (1.0-4.8) Monocytes # (Auto) 0.4 x10^3/uL (0.0-1.1) Eosinophils # (Auto) 0.0 x10^3/uL (0.0-0.7) Basophils # (Auto) 0.0 x10^3/uL (0.0-0.2) Sodium Level 136 mmol/L (136-145) Potassium Level 4.1 mmol/L (3.5-5.1) Chloride Level 100 mmol/L (98-107) Carbon Dioxide Level 29 mmol/L (21-32) Anion Gap 7 (6-14) Blood Urea Nitrogen 11 mg/dL (8-26) Creatinine 1.0 mg/dL (0.7-1.3) Estimated GFR (Cockcroft-Gault) 79.1 Glucose Level 198 mg/dL (70-99) Calcium Level 8.1 mg/dL (8.5-10.1) Magnesium Level 2.2 mg/dL (1.8-2.4) Assessment and Plan Assessmemt and Plan Problems Medical Problems: (1) COVID-19 Status: Acute (2) Pneumonia Status: Acute Comment Review of Relevant I have reviewed the following items nicolas (where applicable) has been applied. Medications: Current Medications Medications (Trade) Dose Ordered Sig/Blanco Route PRN Reason Start Time Stop Time Status Last Admin Dose Admin Sodium Chloride 500 ml @ 250 mls/hr 1X ONCE IV 05/09/21 08:45 05/09/21 10:44 DC 05/09/21 09:00 Benzonatate (Tessalon Perle) 100 mg [id number] PO 05/09/21 14:00 05/09/21 20:56 Remdesivir 200 mg/ Sodium Chloride 210 ml @ 210 mls/hr 1X ONCE IV 05/09/21 11:30 05/09/21 12:29 DC 05/09/21 12:41 Justifications for Admission Other Justification COVID-19 pneumonia GER SPENCE MD May 10, 2021 07:45
[2021-05-10 08:00] VITALS: BP 167/100
[2021-05-10] MEDS: INSULIN LISPRO 300 UNITS/3 ML VIAL. SQ SCH ×4 (08:00→21:30)
[2021-05-10] MEDS: THIAMINE 100 MG TABLET. PO SCH (08:28)
[2021-05-10] MEDS: ZINC SULFATE 220 MG CAPSULE. PO SCH (08:28)
[2021-05-10] MEDS: PANTOPRAZOLE 40 MG TABLET.DR. PO SCH (08:29)
[2021-05-10] MEDS: ASCORBIC ACID 1,000 MG TABLET PO SCH ×3 (08:29→21:00)
[2021-05-10] MEDS: LACTOBACILLUS RHAMNOSUS GG 1 CAPSULE. PO SCH ×2 (08:29→21:00)
[2021-05-10] MEDS: BENZONATATE 100 MG CAPSULE. PO SCH ×3 (08:29→21:00)
[2021-05-10] MEDS: LISINOPRIL 10 MG TABLET PO SCH (08:31)
[2021-05-10] MEDS: DEXAMETHASONE SOD PHOS 4 MG/ML VIAL IVP SCH (08:32)
[2021-05-10] MEDS: ENOXAPARIN 40 MG/0.4 ML SYRINGE. SQ SCH (08:33)
[2021-05-10] MEDS: REMDESIVIR 100mg in NORMAL SALINE 250ML X 4 DAYS IV SCH (08:49)
[2021-05-10] MEDS: IBUPROFEN 400 MG TABLET. PO PRN ×2 (08:50→20:59)
[2021-05-10] MEDS: INSULIN GLARGINE SYRINGE. SQ SCH ×2 (08:52→21:11)
--- NOTE | 2021-05-10 11:15 | NUR ---
SS following up with discharge planning. SS reviewed pt chart and discussed with pt RN. Pt is currently requiring oxygen at three liters nasal canula. COVID19 positive. Pt on IV Remdesivir, IV Decadron, IV Rocephin, and IV Azithromycin. Self pay. Med Assist following. SS will continue to follow for discharge planning.
[2021-05-10 12:00] VITALS: BP 143/85
--- NOTE | 2021-05-10 12:03 | PDOC ---
PULMONARY PROGRESS NOTES DATE: 05/10/21 TIME: 12:02 Vitals Vital Signs Date Time Temp Pulse Resp B/P (MAP) Pulse Ox O2 Delivery O2 Flow Rate FiO2 05/10/21 11:41 89 165/103 05/10/21 09:42 Nasal Cannula 3.0 05/10/21 08:00 98.1 30 95 98.1 Lungs: Clear Labs Laboratory Tests Test 05/08/21 12:47 05/08/21 17:40 05/09/21 02:45 05/09/21 08:20 Glucose (Fingerstick) 343 mg/dL (70-99) 311 mg/dL (70-99) 190 mg/dL (70-99) White Blood Count 4.7 x10^3/uL (4.0-11.0) Red Blood Count 4.84 x10^6/uL (4.30-5.70) Hemoglobin 15.0 g/dL (13.0-17.5) Hematocrit 43.8 % (39.0-53.0) Mean Corpuscular Volume 91 fL (79-100) Mean Corpuscular Hemoglobin 31 pg (25-35) Mean Corpuscular Hemoglobin Concent 34 g/dL (31-37) Red Cell Distribution Width 12.9 % (11.5-14.5) Platelet Count 148 x10^3/uL (140-400) Neutrophils (%) (Auto) 75 % (31-73) Lymphocytes (%) (Auto) 17 % (24-48) Monocytes (%) (Auto) 8 % (0-9) Eosinophils (%) (Auto) 0 % (0-3) Basophils (%) (Auto) 0 % (0-3) Neutrophils # (Auto) 3.5 x10^3/uL (1.8-7.7) Lymphocytes # (Auto) 0.8 x10^3/uL (1.0-4.8) Monocytes # (Auto) 0.4 x10^3/uL (0.0-1.1) Eosinophils # (Auto) 0.0 x10^3/uL (0.0-0.7) Basophils # (Auto) 0.0 x10^3/uL (0.0-0.2) Sodium Level 132 mmol/L (136-145) Potassium Level 4.4 mmol/L (3.5-5.1) Chloride Level 97 mmol/L (98-107) Carbon Dioxide Level 29 mmol/L (21-32) Anion Gap 6 (6-14) Blood Urea Nitrogen 17 mg/dL (8-26) Creatinine 1.1 mg/dL (0.7-1.3) Estimated GFR (Cockcroft-Gault) 70.9 Glucose Level 171 mg/dL (70-99) Calcium Level 8.2 mg/dL (8.5-10.1) Magnesium Level 2.1 mg/dL (1.8-2.4) Test 05/09/21 12:10 05/09/21 12:14 05/09/21 17:27 05/10/21 04:55 D-Dimer (Becca) 0.40 ug/mlFEU (0.00-0.50) C-Reactive Protein, Quantitative 79.5 mg/L (0-3.3) Glucose (Fingerstick) 198 mg/dL (70-99) 184 mg/dL (70-99) White Blood Count 4.2 x10^3/uL (4.0-11.0) Red Blood Count 4.91 x10^6/uL (4.30-5.70) Hemoglobin 14.9 g/dL (13.0-17.5) Hematocrit 44.6 % (39.0-53.0) Mean Corpuscular Volume 91 fL (79-100) Mean Corpuscular Hemoglobin 30 pg (25-35) Mean Corpuscular Hemoglobin Concent 33 g/dL (31-37) Red Cell Distribution Width 13.0 % (11.5-14.5) Platelet Count 166 x10^3/uL (140-400) Neutrophils (%) (Auto) 73 % (31-73) Lymphocytes (%) (Auto) 18 % (24-48) Monocytes (%) (Auto) 9 % (0-9) Eosinophils (%) (Auto) 0 % (0-3) Basophils (%) (Auto) 0 % (0-3) Neutrophils # (Auto) 3.1 x10^3/uL (1.8-7.7) Lymphocytes # (Auto) 0.7 x10^3/uL (1.0-4.8) Monocytes # (Auto) 0.4 x10^3/uL (0.0-1.1) Eosinophils # (Auto) 0.0 x10^3/uL (0.0-0.7) Basophils # (Auto) 0.0 x10^3/uL (0.0-0.2) Sodium Level 136 mmol/L (136-145) Potassium Level 4.1 mmol/L (3.5-5.1) Chloride Level 100 mmol/L (98-107) Carbon Dioxide Level 29 mmol/L (21-32) Anion Gap 7 (6-14) Blood Urea Nitrogen 11 mg/dL (8-26) Creatinine 1.0 mg/dL (0.7-1.3) Estimated GFR (Cockcroft-Gault) 79.1 Glucose Level 198 mg/dL (70-99) Calcium Level 8.1 mg/dL (8.5-10.1) Magnesium Level 2.2 mg/dL (1.8-2.4) Test 05/10/21 08:43 05/10/21 11:35 Glucose (Fingerstick) 152 mg/dL (70-99) 261 mg/dL (70-99) Laboratory Tests Test 05/09/21 12:10 05/09/21 12:14 05/09/21 17:27 05/10/21 04:55 D-Dimer (Becca) 0.40 ug/mlFEU (0.00-0.50) C-Reactive Protein, Quantitative 79.5 mg/L (0-3.3) Glucose (Fingerstick) 198 mg/dL (70-99) 184 mg/dL (70-99) White Blood Count 4.2 x10^3/uL (4.0-11.0) Red Blood Count 4.91 x10^6/uL (4.30-5.70) Hemoglobin 14.9 g/dL (13.0-17.5) Hematocrit 44.6 % (39.0-53.0) Mean Corpuscular Volume 91 fL (79-100) Mean Corpuscular Hemoglobin 30 pg (25-35) Mean Corpuscular Hemoglobin Concent 33 g/dL (31-37) Red Cell Distribution Width 13.0 % (11.5-14.5) Platelet Count 166 x10^3/uL (140-400) Neutrophils (%) (Auto) 73 % (31-73) Lymphocytes (%) (Auto) 18 % (24-48) Monocytes (%) (Auto) 9 % (0-9) Eosinophils (%) (Auto) 0 % (0-3) Basophils (%) (Auto) 0 % (0-3) Neutrophils # (Auto) 3.1 x10^3/uL (1.8-7.7) Lymphocytes # (Auto) 0.7 x10^3/uL (1.0-4.8) Monocytes # (Auto) 0.4 x10^3/uL (0.0-1.1) Eosinophils # (Auto) 0.0 x10^3/uL (0.0-0.7) Basophils # (Auto) 0.0 x10^3/uL (0.0-0.2) Sodium Level 136 mmol/L (136-145) Potassium Level 4.1 mmol/L (3.5-5.1) Chloride Level 100 mmol/L (98-107) Carbon Dioxide Level 29 mmol/L (21-32) Anion Gap 7 (6-14) Blood Urea Nitrogen 11 mg/dL (8-26) Creatinine 1.0 mg/dL (0.7-1.3) Estimated GFR (Cockcroft-Gault) 79.1 Glucose Level 198 mg/dL (70-99) Calcium Level 8.1 mg/dL (8.5-10.1) Magnesium Level 2.2 mg/dL (1.8-2.4) Test 05/10/21 08:43 05/10/21 11:35 Glucose (Fingerstick) 152 mg/dL (70-99) 261 mg/dL (70-99) Medications Active Scripts Medications Dose Route/Sig Max Daily Dose Days Date Category Azithromycin Tablet (Azithromycin) 500 Mg Tablet 1 Tab PO DAILY 3 05/09/21 Rx Lisinopril 10 Mg Tablet 10 Mg PO DAILY 30 05/09/21 Rx Augmentin 875-125 Tablet (Amoxicillin/Potassium Clav) 1 Each Tablet 1 Tab PO BID 3 05/09/21 Rx Metformin Hcl 500 Mg Tablet 500 Mg PO BIDWMEALS 10/12/18 Rx Culturelle (Lactobacillus Rhamnosus Gg) 1 Each Cap.sprink 1 Cap PO BID 10/12/18 Rx Nystop (Nystatin) 60 Gm Powder 1 Chanelle TP BID 10/12/18 Rx Impression . Full consult dictated Acute hypoxemic respiratory failure related to COVID-19 viral pneumonia SYLVIA KOEHLER MD May 10, 2021 12:03
--- NOTE | 2021-05-10 12:24 | CONS ---
DATE OF CONSULTATION: 05/10/2021 ATTENDING PHYSICIAN: Red Sutton MD DICTATING PHYSICIAN: Archana Donald MD REASON FOR CONSULTATION: The patient is seen in pulmonary consultation at the request of Dr. Higgins for hypoxemia, COVID-19. HISTORY OF PRESENT ILLNESS: The patient is a 50-year-old who was admitted with complaints of upper respiratory tract symptoms. The patient has a prior history of asthma, use some metered-dose inhalers as a teenager, he is currently not utilizing any, never smoked. Over the last 24-48 hours, he is requiring increasing amounts of oxygen. I was asked to see him in consultation. He is currently being treated for COVID with remdesivir and dexamethasone. He was also seen in consult by Cardiology for atypical chest pain. They restarted his home lisinopril for hypertension. He also has type 2 diabetes. PAST MEDICAL HISTORY: Hypertension, asthma as a child and young adult, type 2 diabetes. PAST SURGICAL HISTORY: Hernia repair. ALLERGIES: DIPHENHYDRAMINE. SOCIAL HISTORY: He denies any tobacco use. CURRENT MEDICATIONS: List was reviewed. PHYSICAL EXAMINATION: VITAL SIGNS: Stable. O2 saturation was greater than 92%. Since admission, he has been afebrile. He had a T-max 3 days ago 100.4. HEENT: Eyes, the sclerae were nonicteric. NECK: Jugular venous distention was not elevated. No lymphadenopathy. CHEST: Full expansion. LUNGS: Adequate flow with no wheezes, rales or rhonchi. CARDIOVASCULAR: Regular rate and rhythm with S1, S2, no S3. ABDOMEN: Soft. EXTREMITIES: No clubbing, cyanosis or edema. LABORATORY DATA: White count was normal, hemoglobin and hematocrit were noted. D-dimer was not elevated. Electrolytes were noted. Serology for SARS-CoV-2 rapid test was positive. Chest x-ray from yesterday was reviewed. There is bilateral diffuse infiltrates. IMPRESSION: 1. Acute hypoxemic respiratory failure secondary to COVID-19 viral pneumonia. 2. COVID-19 viral pneumonia. 3. Possible bacterial pneumonia. 4. Hypertension. 5. History of asthma. PLAN: 1. Continue current support with oxygen supplementation. 2. IV remdesivir. 3. Steroids. 4. DVT prophylaxis. 5. Monitor blood sugars. ROOSEVELT DR: Gonzalo TID: [id number]
--- NOTE | 2021-05-10 14:30 | NUR ---
PATIENT ARRIVED ON THE UNIT PER W/C, EMOTIONAL SUPPORT GIVEN, COMFORT MEASURES GIVEN, STEEL ENGRAVER TO OBTAIN VITALS, PATIENT COVID 19 POSITIVE, PRECAUTIONS IN PLACE.
[2021-05-10 14:45] VITALS: BP 168/105
[2021-05-10 19:00] VITALS: BP 146/92
[2021-05-10] MEDS: LORazepam 0.5 MG TABLET PO PRN (20:59)
[2021-05-10] MEDS: guaiFENesin/CODEINE 100mg/10mg 5 ML LIQUID PO PRN (21:00)
[2021-05-10] MEDS: cefTRIAXone IV Push 1 GM VIAL. IVP SCH (21:12)
[2021-05-10] MEDS: AZITHROMYCIN 500 MG in IV NORMAL SALINE 250ML 250 ML IV SCH (21:13)
[2021-05-10 23:00] VITALS: BP 155/106
[2021-05-11 03:00] VITALS: BP 142/82
[2021-05-11 07:00] VITALS: BP 142/83
--- NOTE | 2021-05-11 07:39 | PDOC ---
[employer] PROGRESS NOTE Date of Service DOS: DATE: 05/11/21 TIME: 07:39 Chief Complaint Chief Complaint Assessment/Plan Acute hypoxia COVID-19 pneumonia Acute electrolyte derangementhyponatremia, hypochloremia suggestive of volume depletion Hyperglycemia Transaminitis Obesity class I Neutropenia, lymphopenia History of diabetes mellitus, pending hemoglobin A1c Lovenox for DVT prophylaxis Protonix if on steroids GI prophylaxis ADA diet Full code Discussed with RN and SW Disposition inpatient management as above Surrogate decision maker is the History of Present Illness History of Present Illness 50-year-old male with past medical history of diabetes mellitus type 2, asthma who comes in with 1 week of flulike symptoms. Endorses shortness of breath, body aches and nasal congestion. Patient seen in the ED with tachycardia and saturating 94% on room air. Endorses also nausea. Patient is not vaccinated for Covid. Overall symptoms have worsened and that is why he wants to come into the ED to be evaluated. Denies abdominal pain, back pain, dizziness, headache, diarrhea, constipation, chest pain, focal weakness, numbness or tingling, syncope, vision change. 05/08: No acute events overnight. T-max of 100.4. Patient eating quite a bit for breakfast. Sugars difficult control. I have increased his insulin to 30 units twice daily Lantus. Continue high intensity sliding scale. No desaturations saturating 94% on room air. No complaints with patient. 05/09: Patient does not feel very well and continues to have cough. Patient desaturated down to 88 to 89%. Not currently on any oxygen but saturating in the low 90s while lying in bed. Repeat chest x-ray was done showing increased multifocal infiltrates. Will escalate care with IV steroids and Remdesivir. LFTs and creatinine is within acceptable limits. Pulmonology consulted. 05/10: Afebrile, currently breathing on 3 L nasal cannula. He is COVID-19 positive and due to increased O2 requirement he was initiated on steroids and remdesivir. Pulmonology has been consulted. CRP 79.5 yesterday; will discuss with pulmonology about initiating Tocilizumab. Chest x-ray yesterday showed bilateral diffuse infiltrates with little change or marginal worsening. Continue remdesivir, steroids, and supportive care. Hemoglobin A1c >15.5; upon discharge he should be initiated on glargine, however I have my concerns about his ability to self administer insulin and check his blood glucose at home. Afebrile. O2 saturations 92% on room air. Appetite return diarrhea resolved. Glucose in the 100s with 30 units Lantus twice daily and high sliding scale. He notes he is uninsured and wants resources for [facility] Vitals/I&O Vitals/I&O: Vital Signs Date Time Temp Pulse Resp B/P (MAP) Pulse Ox O2 Delivery O2 Flow Rate FiO2 05/11/21 03:00 97.4 96 20 142/82 (102) 92 Room Air 97.4 05/10/21 23:00 3.0 I & O 05/10/21 05/10/21 05/11/21 15:00 23:00 07:00 Intake Total 640 ml 920 ml 540 ml Output Total 700 ml Balance -60 ml 920 ml 540 ml Physical Exam General: Alert, Oriented X3, Cooperative, No acute distress Heart: Regular rate, Normal S1, Normal S2, No murmurs Lungs: Clear Abdomen: Soft, No tenderness Extremities: No cyanosis, No edema Skin: No breakdown, No significant lesion Labs Labs: Laboratory Tests Test 05/10/21 08:43 05/10/21 11:35 05/10/21 17:12 05/10/21 21:13 Glucose (Fingerstick) 152 mg/dL (70-99) 261 mg/dL (70-99) 347 mg/dL (70-99) 424 mg/dL (70-99) Assessment and Plan Assessmemt and Plan Problems Medical Problems: (1) COVID-19 Status: Acute (2) Pneumonia Status: Acute Comment Review of Relevant I have reviewed the following items nicolas (where applicable) has been applied. Medications: Current Medications Medications (Trade) Dose Ordered Sig/Lbanco Route PRN Reason Start Time Stop Time Status Last Admin Dose Admin Dexamethasone Sodium Phosphate (Decadron) 6 mg DAILY IVP 05/10/21 09:00 05/20/21 08:59 05/10/21 08:32 Remdesivir 100 mg/ Sodium Chloride 230 ml @ 460 mls/hr Q24H IV 05/10/21 09:00 05/13/21 09:29 05/10/21 08:49 Insulin Human Lispro (HumaLOG) 0-9 UNITS QIDACHS SQ 05/10/21 21:30 05/10/21 21:30 Justifications for Admission Other Justification COVID-19 pneumonia JOSE BAY MD May 11, 2021 07:39
[2021-05-11 08:08] LABS: ALBUMIN 2.2 g/dL (3.4-5.0); DIRECT BILIRUBIN 0.1 mg/dL (0.0-0.2); TOTAL BILIRUBIN 0.2 mg/dL (0.2-1.0); TOTAL PROTEIN 6.2 g/dL (6.4-8.2)
--- NOTE | 2021-05-11 08:38 | PDOC ---
PULMONARY PROGRESS NOTES DATE: 05/11/21 TIME: 08:38 Vitals Vital Signs Date Time Temp Pulse Resp B/P (MAP) Pulse Ox O2 Delivery O2 Flow Rate FiO2 05/11/21 03:00 97.4 96 20 142/82 (102) 92 Room Air 97.4 05/10/21 23:00 3.0 Lungs: Clear Labs Laboratory Tests Test 05/09/21 12:10 05/09/21 12:14 05/09/21 17:27 05/10/21 04:55 D-Dimer (Becca) 0.40 ug/mlFEU (0.00-0.50) C-Reactive Protein, Quantitative 79.5 mg/L (0-3.3) Glucose (Fingerstick) 198 mg/dL (70-99) 184 mg/dL (70-99) White Blood Count 4.2 x10^3/uL (4.0-11.0) Red Blood Count 4.91 x10^6/uL (4.30-5.70) Hemoglobin 14.9 g/dL (13.0-17.5) Hematocrit 44.6 % (39.0-53.0) Mean Corpuscular Volume 91 fL (79-100) Mean Corpuscular Hemoglobin 30 pg (25-35) Mean Corpuscular Hemoglobin Concent 33 g/dL (31-37) Red Cell Distribution Width 13.0 % (11.5-14.5) Platelet Count 166 x10^3/uL (140-400) Neutrophils (%) (Auto) 73 % (31-73) Lymphocytes (%) (Auto) 18 % (24-48) Monocytes (%) (Auto) 9 % (0-9) Eosinophils (%) (Auto) 0 % (0-3) Basophils (%) (Auto) 0 % (0-3) Neutrophils # (Auto) 3.1 x10^3/uL (1.8-7.7) Lymphocytes # (Auto) 0.7 x10^3/uL (1.0-4.8) Monocytes # (Auto) 0.4 x10^3/uL (0.0-1.1) Eosinophils # (Auto) 0.0 x10^3/uL (0.0-0.7) Basophils # (Auto) 0.0 x10^3/uL (0.0-0.2) Sodium Level 136 mmol/L (136-145) Potassium Level 4.1 mmol/L (3.5-5.1) Chloride Level 100 mmol/L (98-107) Carbon Dioxide Level 29 mmol/L (21-32) Anion Gap 7 (6-14) Blood Urea Nitrogen 11 mg/dL (8-26) Creatinine 1.0 mg/dL (0.7-1.3) Estimated GFR (Cockcroft-Gault) 79.1 Glucose Level 198 mg/dL (70-99) Calcium Level 8.1 mg/dL (8.5-10.1) Magnesium Level 2.2 mg/dL (1.8-2.4) Test 05/10/21 08:43 05/10/21 11:35 05/10/21 17:12 05/10/21 21:13 Glucose (Fingerstick) 152 mg/dL (70-99) 261 mg/dL (70-99) 347 mg/dL (70-99) 424 mg/dL (70-99) Test 05/11/21 07:30 Total Bilirubin 0.2 mg/dL (0.2-1.0) Direct Bilirubin 0.1 mg/dL (0.0-0.2) Aspartate Amino Transf (AST/SGOT) 32 U/L (15-37) Alanine Aminotransferase (ALT/SGPT) 69 U/L (16-63) Alkaline Phosphatase 97 U/L (46-116) Total Protein 6.2 g/dL (6.4-8.2) Albumin 2.2 g/dL (3.4-5.0) Laboratory Tests Test 05/10/21 08:43 05/10/21 11:35 05/10/21 17:12 05/10/21 21:13 Glucose (Fingerstick) 152 mg/dL (70-99) 261 mg/dL (70-99) 347 mg/dL (70-99) 424 mg/dL (70-99) Test 05/11/21 07:30 Total Bilirubin 0.2 mg/dL (0.2-1.0) Direct Bilirubin 0.1 mg/dL (0.0-0.2) Aspartate Amino Transf (AST/SGOT) 32 U/L (15-37) Alanine Aminotransferase (ALT/SGPT) 69 U/L (16-63) Alkaline Phosphatase 97 U/L (46-116) Total Protein 6.2 g/dL (6.4-8.2) Albumin 2.2 g/dL (3.4-5.0) Medications Active Scripts Medications Dose Route/Sig Max Daily Dose Days Date Category Azithromycin Tablet (Azithromycin) 500 Mg Tablet 1 Tab PO DAILY 3 05/09/21 Rx Lisinopril 10 Mg Tablet 10 Mg PO DAILY 30 05/09/21 Rx Augmentin 875-125 Tablet (Amoxicillin/Potassium Clav) 1 Each Tablet 1 Tab PO BID 3 05/09/21 Rx Metformin Hcl 500 Mg Tablet 500 Mg PO BIDWMEALS 10/12/18 Rx Culturelle (Lactobacillus Rhamnosus Gg) 1 Each Cap.sprink 1 Cap PO BID 10/12/18 Rx Nystop (Nystatin) 60 Gm Powder 1 Chanelle TP BID 10/12/18 Rx Impression . IMPRESSION: 1. Acute hypoxemic respiratory failure secondary to COVID-19 viral pneumonia. 2. COVID-19 viral pneumonia. 3. Possible bacterial pneumonia. 4. Hypertension. 5. History of asthma. Plan . PLAN: 1. Continue current support with oxygen supplementation. 2. IV remdesivir. 3. Steroids. 4. DVT prophylaxis. 5. Monitor blood sugars. SYLVIA KOEHLER MD May 11, 2021 08:38
[2021-05-11] MEDS: PANTOPRAZOLE 40 MG TABLET.DR. PO SCH (09:22)
[2021-05-11] MEDS: THIAMINE 100 MG TABLET. PO SCH (09:22)
[2021-05-11] MEDS: REMDESIVIR 100mg in NORMAL SALINE 250ML X 4 DAYS IV SCH (09:22)
[2021-05-11] MEDS: LACTOBACILLUS RHAMNOSUS GG 1 CAPSULE. PO SCH (09:22)
[2021-05-11] MEDS: ZINC SULFATE 220 MG CAPSULE. PO SCH (09:22)
[2021-05-11] MEDS: DEXAMETHASONE SOD PHOS 4 MG/ML VIAL IVP SCH (09:22)
[2021-05-11] MEDS: ASCORBIC ACID 1,000 MG TABLET PO SCH ×2 (09:23→14:00)
[2021-05-11] MEDS: ENOXAPARIN 40 MG/0.4 ML SYRINGE. SQ SCH (09:23)
[2021-05-11] MEDS: BENZONATATE 100 MG CAPSULE. PO SCH ×2 (09:23→14:00)
[2021-05-11] MEDS: LISINOPRIL 10 MG TABLET PO SCH (09:23)
[2021-05-11] MEDS: INSULIN LISPRO 300 UNITS/3 ML VIAL. SQ SCH ×2 (09:39→12:03)
[2021-05-11] MEDS ORDERED: NPH,100V SQ (09:56)
[2021-05-11] MEDS ORDERED: DEXA6TAB6 PO (09:56)
[2021-05-11] MEDS ORDERED: INSU100V5 IJ (09:56)
[2021-05-11] MEDS ORDERED: METF500T16 PO (10:04)
--- NOTE | 2021-05-11 10:25 | NUR ---
SS following up with discharge planning. SS reviewed pt chart and discussed with pt RN. Pt is currently on room air. COVID19 positive. Medications switched to PO today. Self pay. Med Assist following. Discharge order on the chart for home with self care.
[2021-05-11 11:00] VITALS: BP 155/99
[2021-05-11] MEDS: INSULIN GLARGINE SYRINGE. SQ SCH (12:03)
--- NOTE | 2021-05-11 12:48 | PDOC3 ---
Discharge Summary Visit Information Date of Admission: May 06, 2021 Date of Discharge: May 11, 2021 Admitting Diagnosis: COVID 19 pneumonia Final Diagnosis Problems Medical Problems: (1) COVID-19 Status: Acute (2) Pneumonia Status: Acute Brief Hospital Course Allergies Allergies Coded Allergies Type Severity Reaction Last Updated Verified diphenhydramine Adverse Reaction Intermediate itching 09/16/20 Yes Vital Signs Vital Signs Date Time Temp Pulse Resp B/P (MAP) Pulse Ox O2 Delivery O2 Flow Rate FiO2 05/11/21 11:00 97.8 94 20 155/99 (117) 90 Room Air 97.8 05/10/21 23:00 3.0 Lab Results Laboratory Tests Test 05/09/21 17:27 05/10/21 04:55 05/10/21 08:43 05/10/21 11:35 Glucose (Fingerstick) 184 mg/dL (70-99) 152 mg/dL (70-99) 261 mg/dL (70-99) White Blood Count 4.2 x10^3/uL (4.0-11.0) Red Blood Count 4.91 x10^6/uL (4.30-5.70) Hemoglobin 14.9 g/dL (13.0-17.5) Hematocrit 44.6 % (39.0-53.0) Mean Corpuscular Volume 91 fL (79-100) Mean Corpuscular Hemoglobin 30 pg (25-35) Mean Corpuscular Hemoglobin Concent 33 g/dL (31-37) Red Cell Distribution Width 13.0 % (11.5-14.5) Platelet Count 166 x10^3/uL (140-400) Neutrophils (%) (Auto) 73 % (31-73) Lymphocytes (%) (Auto) 18 % (24-48) Monocytes (%) (Auto) 9 % (0-9) Eosinophils (%) (Auto) 0 % (0-3) Basophils (%) (Auto) 0 % (0-3) Neutrophils # (Auto) 3.1 x10^3/uL (1.8-7.7) Lymphocytes # (Auto) 0.7 x10^3/uL (1.0-4.8) Monocytes # (Auto) 0.4 x10^3/uL (0.0-1.1) Eosinophils # (Auto) 0.0 x10^3/uL (0.0-0.7) Basophils # (Auto) 0.0 x10^3/uL (0.0-0.2) Sodium Level 136 mmol/L (136-145) Potassium Level 4.1 mmol/L (3.5-5.1) Chloride Level 100 mmol/L (98-107) Carbon Dioxide Level 29 mmol/L (21-32) Anion Gap 7 (6-14) Blood Urea Nitrogen 11 mg/dL (8-26) Creatinine 1.0 mg/dL (0.7-1.3) Estimated GFR (Cockcroft-Gault) 79.1 Glucose Level 198 mg/dL (70-99) Calcium Level 8.1 mg/dL (8.5-10.1) Magnesium Level 2.2 mg/dL (1.8-2.4) Test 05/10/21 17:12 05/10/21 21:13 05/11/21 07:30 05/11/21 09:20 Glucose (Fingerstick) 347 mg/dL (70-99) 424 mg/dL (70-99) 188 mg/dL (70-99) Total Bilirubin 0.2 mg/dL (0.2-1.0) Direct Bilirubin 0.1 mg/dL (0.0-0.2) Aspartate Amino Transf (AST/SGOT) 32 U/L (15-37) Alanine Aminotransferase (ALT/SGPT) 69 U/L (16-63) Alkaline Phosphatase 97 U/L (46-116) Total Protein 6.2 g/dL (6.4-8.2) Albumin 2.2 g/dL (3.4-5.0) Test 05/11/21 11:33 Glucose (Fingerstick) 189 mg/dL (70-99) Laboratory Tests Test 05/10/21 17:12 05/10/21 21:13 05/11/21 07:30 05/11/21 09:20 Glucose (Fingerstick) 347 mg/dL (70-99) 424 mg/dL (70-99) 188 mg/dL (70-99) Total Bilirubin 0.2 mg/dL (0.2-1.0) Direct Bilirubin 0.1 mg/dL (0.0-0.2) Aspartate Amino Transf (AST/SGOT) 32 U/L (15-37) Alanine Aminotransferase (ALT/SGPT) 69 U/L (16-63) Alkaline Phosphatase 97 U/L (46-116) Total Protein 6.2 g/dL (6.4-8.2) Albumin 2.2 g/dL (3.4-5.0) Test 05/11/21 11:33 Glucose (Fingerstick) 189 mg/dL (70-99) Brief Hospital Course 50-year-old male with past medical history of diabetes mellitus type 2, asthma who comes in with 1 week of flulike symptoms. Endorses shortness of breath, body aches and nasal congestion. Patient seen in the ED with tachycardia and saturating 94% on room air. Endorses also nausea. Patient is not vaccinated for Covid. Overall symptoms have worsened and that is why he wants to come into the ED to be evaluated. Denies abdominal pain, back pain, dizziness, headache, diarrhea, constipation, chest pain, focal weakness, numbness or tingling, syncope, vision change. 05/08: No acute events overnight. T-max of 100.4. Patient eating quite a bit for breakfast. Sugars difficult control. I have increased his insulin to 30 units twice daily Lantus. Continue high intensity sliding scale. No desaturations saturating 94% on room air. No complaints with patient. 05/09: Patient does not feel very well and continues to have cough. Patient desaturated down to 88 to 89%. Not currently on any oxygen but saturating in the low 90s while lying in bed. Repeat chest x-ray was done showing increased multifocal infiltrates. Will escalate care with IV steroids and Remdesivir. LFTs and creatinine is within acceptable limits. Pulmonology consulted. 05/10: Afebrile, currently breathing on 3 L nasal cannula. He is COVID-19 positive and due to increased O2 requirement he was initiated on steroids and remdesivir. Pulmonology has been consulted. CRP 79.5 yesterday; will discuss with pulmonology about initiating Tocilizumab. Chest x-ray yesterday showed bilateral diffuse infiltrates with little change or marginal worsening. Continue remdesivir, steroids, and supportive care. Hemoglobin A1c >15.5; upon discharge he should be initiated on glargine, however I have my concerns about his ability to self administer insulin and check his blood glucose at home. Afebrile. O2 saturations 92% on room air. Appetite return diarrhea resolved. Glucose in the 100s with 30 units Lantus twice daily and high sliding scale. He notes he is uninsured and wants resources for [facility] clinics. Advised Humulin and 25 units twice daily and Humulin R 4 times daily before meals and at bedtime. Given Metformin prescription and dexamethasone to complete 5 additional days. Advised to continue to isolate until 05/16/2021 for his Covid. 6-minute walk pending at this time. Consults: Cardiology and Pulmonology Problem list: Acute hypoxia COVID-19 pneumonia Acute electrolyte derangementhyponatremia, hypochloremia suggestive of volume depletion Hyperglycemia Transaminitis Obesity class I Neutropenia, lymphopenia History of diabetes mellitus, hemoglobin A1c 15.5 Greater than 30 minutes spent on d/c home Discharge Information Condition at Discharge: Improved Follow Up: Weeks (1) Disposition/Orders: D/C to Home Scheduled Amoxicillin/Potassium Clav (Augmentin 875-125 Tablet) 1 Each Tablet, 1 TAB PO BID for COVID for 3 Days, #6 Prescribed by: EDGARDO BURNS MD on 05/09/21 0845 Azithromycin (Azithromycin Tablet) 500 Mg Tablet, 1 TAB PO DAILY for COVID for 3 Days, #3 Ref 0 Prescribed by: EDGARDO BURNS MD on 05/09/21 0845 Dexamethasone (Decadron) 6 Mg Tablet, 6 MG PO DAILY for COVID 19 for 5 Days, #5 Prescribed by: JOSE BAY MD on 05/11/21 0956 Insulin Regular, Human (Humulin R) 100 Unit/1 Ml Vial, 0-9 UNIT IJ QIDACHS for DM2 for 30 Days, #30 Ref 5 Prescribed by: JOSE BAY MD on 05/11/21 0956 Lactobacillus Rhamnosus Gg (Culturelle) 1 Each Cap.sprink, 1 CAP PO BID for gut health while on antibiotic, #60 Prescribed by: LANIE THOMAS on 10/12/18 1144 Lisinopril (Lisinopril) 10 Mg Tablet, 10 MG PO DAILY for blood pressure for 30 Days, #30 Ref 2 Prescribed by: EDGARDO BURNS MD on 05/09/21 0845 Metformin Hcl (Metformin Hcl) 500 Mg Tablet, 500 MG PO BIDWMEALS for ANTI- DIABETIC for 30 Days, #60 Ref 5 Prescribed by: JOSE BAY MD on 05/11/21 1004 Nph, Human Insulin Isophane (Humulin N) 100 Unit/1 Ml Vial, 25 UNIT SQ BID for DM2 for 30 Days, #1 Ref 5 Prescribed by: JOSE BAY MD on 05/11/21 0956 Nystatin (Nystop) 60 Gm Powder, 1 QUINTON TP BID for rash, #30 Prescribed by: LANIE THOMAS on 10/12/18 1144 Discontinued Medications Amoxicillin (Amoxicillin) 500 Mg Tablet, 1 TAB PO BID, #20 Prescribed by: Sarika Payne APRN on 09/16/20 1243 Doxycycline Monohydrate (Doxycycline Monohydrate) 100 Mg Capsule, 1 CAP PO BID for cellulitis, #14 Prescribed by: LANIE THOMAS on 10/12/18 1144 Fluconazole (Fluconazole) 200 Mg Tablet, 1 TAB PO DAILY for skin rash, #7 Prescribed by: LANIE THOMAS on 10/12/18 1145 Lisinopril (Lisinopril) 2.5 Mg Tablet, 1 TAB PO DAILY for hypertension and diabe tete, #30 Ref 1 Prescribed by: LANIE THOMAS on 10/12/18 1147 Justicifation of Admission Dx: Justifications for Admission: Justification of Admission Dx: Yes Respiratory Failure: Severe Resp Distress JOSE BAY MD May 11, 2021 12:48
--- NOTE | 2021-05-11 13:10 | NUR ---
Discharge instructions given, questions and concerns answered, patient verbalized understanding of discharge instructions including taking all medications as instructed. Patient passed 6 min. walk requiring no oxygen at rest or with exertion, all personal belongings gathered by the patient and placed in bags for discharge.
--- NOTE | 2021-05-11 14:00 | NUR ---
Patient leaves the unit per w/c and accompanied by this writer editor, emotional support given, f/u appointments encouraged.
== END 2021-05-11 14:00 | disposition home or self-care (01) | DRG 177 ==
LOC: ER 19:09 → 1 WEST ICU 23:20 → OBSVTOIN 23:37 → 5 SOUTH 05-10 14:25
PROVIDERS: ADMIT Internal Medicine; ATTEND Internal Medicine
PROC: XW033E5 Introduction of Remdesivir Anti-infective into Peripheral Vein, Percutaneous Approach, New Technology Group 5 (ICD-10-PCS; principal; 2021-05-10)
DX: U07.1 COVID-19 (principal); J12.82 Pneumonia due to coronavirus disease 2019; J96.01 Acute respiratory failure with hypoxia; E87.1 Hypo-osmolality and hyponatremia; D70.9 Neutropenia, unspecified; E66.9 Obesity, unspecified; E87.8 Other disorders of electrolyte and fluid balance, not elsewhere classified; I10 Essential (primary) hypertension; J45.909 Unspecified asthma, uncomplicated; Z82.49 Family history of ischemic heart disease and other diseases of the circulatory system; Z87.09 Personal history of other diseases of the respiratory system; Z68.34 Body mass index [BMI] 34.0-34.9, adult; Z88.8 Allergy status to other drugs, medicaments and biological substances; Z79.899 Other long term (current) drug therapy; E11.65 Type 2 diabetes mellitus with hyperglycemia; Z79.4 Long term (current) use of insulin; Z28.3 Underimmunization status
CPT/HCPCS: 36415; 36600; 71045; 80048; 80053; 80061; 80076; 80307; 81001; 82805; 82962; 83036; 83605; 83690; 83735; 83880; 84100; 84145; 84484; 85025; 85027; 85379; 86140; 87040; 87426; 87804; 93005; 94618; 96365; 96375; G0379; J0456; J0696; J1100; J1650; J1815; J2405; J3490; J7030; J7050; J7512; 99285-25; G0378